=== PATIENT | male | born 1960 | race Caucasian/White ===

== ENCOUNTER 2020-04-29 10:21 | Outpatient (REF) | payer MEDICAID, SELFPAY ==
--- NOTE | 2020-04-29 | MR_ITS ---
EXAMINATION: MR BRAIN WITHOUT CONTRAST CLINICAL INFORMATION: Right facial numbness. Headaches. COMPARISON: None. TECHNIQUE: MRI of the brain was obtained using routine sequences without contrast. FINDINGS: Posterior fossa structures are normal. The craniocervical junction is normal. Empty sella. There is no intracranial mass, mass effect, or shift of midline structures. No abnormal extra axial fluid collection. The lateral and third ventricles are normal and proportionate to the subarachnoid spaces and there is no evidence of hydrocephalus. There is no acute ischemia. No pathological magnetic susceptibility artifact is demonstrated. The intracranial vascular flow voids including the major dural venous sinuses are preserved. Mastoid air cells are clear. Small mucous retention cysts within the bilateral maxillary sinuses. Minimal mucosal thickening within the ethmoid air cells anteriorly. Remainder of the paranasal sinuses are clear. Globes and orbits are symmetric. MR/MR head/brain wo con IMPRESSION: No acute or subacute intracranial pathology. No brain parenchymal signal abnormalities are Incidental note made of an empty sella.
== END 2020-04-29 10:22 | disposition home or self-care (01) ==
LOC: HO.MRI 10:21
PROVIDERS: Visit Provider Nurse Practitioner Primary Care
DX: G44.89 Other headache syndrome (principal); R20.0 Anesthesia of skin; R20.2 Paresthesia of skin
CPT/HCPCS: 70551

== ENCOUNTER 2020-08-25 14:39 | Outpatient (REF) | payer MEDICAID, SELFPAY ==
--- NOTE | ~2020-08-25 | US_ITS ---
EXAMINATION: US SCROTUM CLINICAL INFORMATION: Right testicular pain. COMPARISON: None TECHNIQUE: A sonogram of the scrotum was performed assessing nguyen-scale appearance and color Doppler flow. Spectral Doppler analysis of the arterial and venous flow were performed in the testes bilaterally. FINDINGS: RIGHT: Right testicle measures 4.1 x 2.2 x 3.5 cm, volume 16.2 mL. No focal testicular parenchymal lesions are visualized. Spectral Doppler analysis of the arterial and venous flow is normal in the right testis. Right epididymal head is enlarged. There are several epididymal head cysts, largest measuring 1 x 1.2 x 1.1 cm. There is an appendix epididymis. There is a large right hydrocele. No right varicocele is seen. Right epididymal Doppler flow is normal. LEFT: Left testicle measures 3.7 x 2.8 x 2.6 cm, volume 14.3 mL. There are 3 small calcifications seen in the left testicle. No other focal testicular lesion is seen. Spectral Doppler analysis of the arterial and venous flow is normal in the left testis. Left epididymal head is enlarged. There are multiple left epididymal head cysts, largest measuring 7 x 4 x 5 mm. There is an appendix epididymis. There is a large left hydrocele. There is a left inferior right scrotal calcification suggestive of a scrotal tom, usually related to old infection or trauma. No left varicocele is seen. Left epididymal Doppler flow is normal. US/US scrotum IMPRESSION: Large bilateral hydroceles. Bilateral epididymal head cysts.
== END 2020-08-25 14:40 | disposition home or self-care (01) ==
LOC: HO.US 14:39
PROVIDERS: Visit Provider Nurse Practitioner Primary Care
DX: N50.811 Right testicular pain (principal); N50.89 Other specified disorders of the male genital organs
CPT/HCPCS: 76870

== ENCOUNTER → 2020-10-12 12:54 | Outpatient (BNVA) | payer MEDICAID, SELFPAY | PROVIDERS: PCP Nurse Practitioner Primary Care; Visit Provider Urology | DX: Z13.89 Encounter for screening for other disorder (principal) | CPT/HCPCS: 99202 ==

== ENCOUNTER → 2021-04-12 12:53 | Outpatient (BNVA) | payer MEDICAID, SELFPAY | PROVIDERS: PCP Nurse Practitioner Primary Care; Visit Provider Urology | DX: N50.3 Cyst of epididymis (principal) | CPT/HCPCS: 99212 ==

== ENCOUNTER 2021-05-15 11:58 | Day surgery (SDC) | payer MEDICAID, SELFPAY ==
--- NOTE | 2021-05-12 13:46 | HO.ANESPROP2 ---
Documented by User: Tamika Lindo NP 05/12/21 13:47 HPI - Anesthesia Eval Consult details Narrative: 60yo M for Epididymal Cyst removal of scrotum PMFSH Active Problems Active Problems: All Active Problems (Updated 04/12/21 @ 13:38 by Niranjan Steel MD) BPH (benign prostatic hyperplasia) (Acute) Epididymal cyst (Acute) Past Medical History Medical History (Updated 04/12/21 @ 13:38 by Niranjan Steel MD) BPH (benign prostatic hyperplasia) Diabetes mellitus HTN (hypertension) Testicular pain Family History Family History (Updated 04/12/21 @ 13:09 by Jocelyn Hanson CMA) Sister HTN (hypertension) Social History Social History (Updated 04/12/21 @ 13:09 by Jocelyn Hanson CMA) Alcohol intake: never Patient Tobacco Use Status: Never used Tobacco Second Hand Smoke Exposure: No Use of substances other than those prescribed or required for medical reasons: No Are you DNR?: No Advance Directives: No Advance Directives Information Provided: Yes Advance Directives on File: No Meds Allergies Allergy/AdvReac Type Severity Reaction Status Date / Time No Known Allergies Allergy Verified 04/12/21 13:07 Home Medications Medication Instructions Recorded Confirmed Last Taken Type atorvastatin 10 mg tablet 10 mg PO DAILY 04/12/21 Unknown History clotrimazole 1 % topical cream appl TOPICAL 04/12/21 Unknown History lancets 33 gauge (TRUEplus Lancets) #100 ea 04/12/21 Unknown History metformin 500 mg tablet 500 mg PO BID 04/12/21 Unknown History polyethylene glycol 3350 17 gram 17 g PO DAILY PRN 04/12/21 Unknown History oral powder packet terbinafine HCl 250 mg tablet 250 mg PO DAILY 04/12/21 Unknown History Exam Exam Date and Time: May 12, 2021 1346 Assessment and Plan Assessment Anesthesia Assessment: Chart Reviewed Documented by User: Nury Dennis MD 05/15/21 13:17 PMFSH Past Medical History Medical History (Updated 04/12/21 @ 13:38 by Niranjan Steel MD) BPH (benign prostatic hyperplasia) Diabetes mellitus HTN (hypertension) Testicular pain Family History Family History (Updated 04/12/21 @ 13:09 by Jocelyn Hanson CMA) Sister HTN (hypertension) Family history of problems with anesthesia: No Surgical History History of Problems with Anesthesia: No Social History Social History (Updated 04/12/21 @ 13:09 by Jocelyn Hanson CMA) Alcohol intake: never Patient Tobacco Use Status: Never used Tobacco Second Hand Smoke Exposure: No Use of substances other than those prescribed or required for medical reasons: No Are you DNR?: No Advance Directives: No Advance Directives Information Provided: Yes Advance Directives on File: No Meds Allergies Allergy/AdvReac Type Severity Reaction Status Date / Time No Known Allergies Allergy Verified 04/12/21 13:07 Home Medications Medication Instructions Recorded Confirmed Last Taken Type atorvastatin 10 mg tablet 10 mg PO DAILY 04/12/21 Unknown History clotrimazole 1 % topical cream appl TOPICAL 04/12/21 Unknown History lancets 33 gauge (TRUEplus Lancets) #100 ea 04/12/21 Unknown History metformin 500 mg tablet 500 mg PO BID 04/12/21 Unknown History polyethylene glycol 3350 17 gram 17 g PO DAILY PRN 04/12/21 Unknown History oral powder packet terbinafine HCl 250 mg tablet 250 mg PO DAILY 04/12/21 Unknown History Exam Airway Mallampati Class: II TM Dist: >3cm Neck ROM: Full Heart: rrr Lungs: cta Assessment and Plan Assessment Anesthesia Assessment: Anesthesia Plan Discussed and Chart Reviewed Final Anesthetic Review Family History of Problems with Anesthesia: No History of Problems with Anesthesia: No NPO: Yes ASA Class: II Final Preanesthetic Review: No Changes in Pt Med Stat, Meds/Allgs Chart Reviewed and Consent Obtained/Reviewed Patient Risk: Intermediate Procedure Risk: Intermediate Anesthetic Plan Anesthetic Plan: GA Disposition: Standard PACU
[2021-05-15 12:31] VITALS: BMI 28.1
[2021-05-15 12:47] LABS: Glucose, Whole Blood 153 mg/dL (60-115)
[2021-05-15 12:48] VITALS: BP 142/87; PULSE 78; RESP 16; TEMP 36.6; O2SAT 98
[2021-05-15] MEDS: Lactated Ringers 1,000 ML 100 ML IVCONT (12:49)
--- NOTE | 2021-05-15 14:25 | MHC.SHP ---
Pre-Procedural Eval Section A Date of Service: 05/15/21 The patient is an INPATIENT: No Changes since office visit: No Cold of Flu in the past 2 weeks, No New Medical Problems, No Changes in Medication and No Patient answered all questions The History & Physical has been completed within 30 days and I have reviewed it.: Yes Section B Chief Complaint: cyst Allergies: Allergies Allergy/AdvReac Type Severity Reaction Status Date / Time No Known Allergies Allergy Verified 04/12/21 13:07 Plan Diagnosis/Plan: Unchanged (Removal bilateral epididymal cyst) I have reviewed the history and physical and performed a pertinent physical examination on my patient. No changes have occurred unless specified.
--- NOTE | 2021-05-15 15:45 | W.PM.OPN ---
Operative Note Operative Note Date of Service: 05/15/21 Narrative: PreOperative Diagnosis: Bilateral epididymal cysts Post Operative Diagnosis: Bilateral hydrocele, sebaceous cyst on scrotum Procedure: Bilateral Hydrocelectomy. Right epididymal cyst removal, left scrotal sebaceous cyst removal Surgeon: Dr Niranjan Steel Anesthesia: General Indications for procedure: Persistent swelling of scrotum. Ultrasound showing bilateral epididymal cyst. Left scrotal sebaceous cyst. hydrocele with persistent discomfort Procedure: After informed consent was verified the patient was brought to the operating room and placed in a supine position. Anesthesia was administered per protocol. Patient was appropriately shaved and genitals were prepped and draped in sterile fashion. Safety pause time-out was performed. Antibiotics being given. Local anesthetic was infiltrated under the skin in a vertical fashion on the scrotum at the midline Skin incision was made using a blade through the subdermal layer. The tunica around the testicle was elevated and dissected free from surrounding tissue on the left side 1st. The testicle was delivered out of the scrotum and opened. Fluid was removed. The testicle sac was inverted and a bottle neck procedure was performed using a running 3-0 Vicryl suture. Skin edges of the tunica were cauterized carefully in order to try to minimize postprocedure hematoma. Testis appendix sees were removed. There was no epididymal cyst on the left side. Small accessory appendices were removed from the head of epididymis. Were after excess skin had been trimmed in edges fully controlled the scrotum was placed back into a dependent portion of the scrotum. Overlying layer was closed with a running 3-0 Vicryl suture. The right scrotal area was then opened through the tissue and the right testicle delivered. Again a hydrocele was found with interval accessory appendage sees. There was also a cyst within the head of the epididymis that was removed. The epididymal head cyst area was closed with 3-0 Vicryl. The edges of the hydrocele were attached in run. 3-0 Vicryl used for closure of the overlying tissue. A final layer of tissue was overlaid both incisions using a running 3-0 Vicryl. Skin was closed with interrupted 3-0 chromic sutures. A sebaceous cyst measuring 15 mm on the left dependent scrotum was opened and sebaceous cyst removed with underlying cyst structure removed. This was closed with an interrupted chromic. Patient tolerated procedure well was extubated in operating room transferred in stable condition to the recovery area Pathology: Hydrocele sac Drains: None
[2021-05-15 15:53] VITALS: BP 134/91; PULSE 74; RESP 16; TEMP 36.6; O2SAT 97
[2021-05-15 15:58] VITALS: BP 140/86; PULSE 70; RESP 16; O2SAT 98
[2021-05-15 16:03] VITALS: BP 113/74; PULSE 77; RESP 16; O2SAT 98
[2021-05-15 16:08] VITALS: BP 107/69; PULSE 81; RESP 16; O2SAT 96
[2021-05-15 16:23] VITALS: BP 100/63; PULSE 68; RESP 16; TEMP 36.3; O2SAT 98
== END 2021-05-15 16:50 | disposition home or self-care (01) ==
PROVIDERS: PCP Nurse Practitioner Primary Care; Visit Provider Urology
PROC: (CPT 54830; principal; 2021-05-15 13:30)
DX: N43.3 Hydrocele, unspecified (principal); N50.3 Cyst of epididymis; L72.3 Sebaceous cyst; N40.0 Benign prostatic hyperplasia without lower urinary tract symptoms; N50.819 Testicular pain, unspecified; I10 Essential (primary) hypertension; E11.9 Type 2 diabetes mellitus without complications; Z79.84 Long term (current) use of oral hypoglycemic drugs; Z79.899 Other long term (current) drug therapy
CPT/HCPCS: 54830; 11420; 55041; 82947; 88302; 88304; J1956; J2405; J3010

== ENCOUNTER 2022-10-31 12:32 | Day surgery (SDC) | payer MEDICAID, SELFPAY ==
[2022-10-31 13:03] VITALS: BMI 28.2
[2022-10-31 13:08] VITALS: BP 139/78; PULSE 61; RESP 18; TEMP 36.4; O2SAT 97
--- NOTE | 2022-10-31 13:18 | HO.ANESPROP2 ---
HPI - Anesthesia Eval Consult details Narrative: for [facility] Active Problems Active Problems: All Active Problems (Updated 04/12/21 @ 13:38 by Niranjan Steel MD) Epididymal cyst (Acute) BPH (benign prostatic hyperplasia) (Acute) Past Medical History Medical History BPH (benign prostatic hyperplasia) Diabetes mellitus HTN (hypertension) Testicular pain Family History Family History Sister HTN (hypertension) Family history of problems with anesthesia: No Surgical History Surgical History Status post repair of hydrocele History of Problems with Anesthesia: Unobtainable Social History Social History Alcohol intake: never Patient Tobacco Use Status: Never used Tobacco Second Hand Smoke Exposure: No Use of substances other than those prescribed or required for medical reasons: No Are you DNR?: No Advance Directives: No Advance Directives Information Provided: Yes Meds Allergies Allergy/AdvReac Type Severity Reaction Status Date / Time No Known Allergies Allergy Verified 04/12/21 13:07 Active Medications: Current Medications Lactated Ringer's (Lr) 1,000 mls @ 100 mls/hr IVCONT .Q10H LAYNE Home Medications Medication Instructions Recorded Confirmed Last Taken Type atorvastatin 10 mg tablet 10 mg PO DAILY 04/12/21 10/31/22 Unknown History clotrimazole 1 % topical cream 1 appl topical DAILY PRN Rash 04/12/21 Unknown History lancets 33 gauge (TRUEplus Lancets) #100 ea 04/12/21 Unknown History metformin 500 mg tablet 500 mg PO BID 04/12/21 10/31/22 Unknown History Exam Exam Date and Time: October 31, 2022 1318 Height,Weight and Vital Signs: Height 5 ft 7 in Weight 81.647 kg Last Vital Signs Temp 97.6 F 10/31/22 13:08 Pulse 61 10/31/22 13:08 Resp 18 10/31/22 13:08 BP 139/78 10/31/22 13:08 Pulse Ox 97 10/31/22 13:08 O2 Del Method Room Air 10/31/22 13:08 Airway Mallampati Class: II TM Dist: >3cm Neck ROM: Full Heart: rrr Lungs: cta Assessment and Plan Assessment Anesthesia Assessment: Anesthesia Plan Discussed and Chart Reviewed Final Anesthetic Review Family History of Problems with Anesthesia: No History of Problems with Anesthesia: Unobtainable NPO: Yes ASA Class: II Final Preanesthetic Review: No Changes in Pt Med Stat, Meds/Allgs Chart Reviewed, Consent Obtained/Reviewed and Anes Risks/Benef Reviewed Patient Risk: Low Procedure Risk: Low Anesthetic Plan Anesthetic Plan: MAC: Disposition: Standard PACU
[2022-10-31 13:20] LABS: Glucose, Whole Blood 104 mg/dL (60-115)
[2022-10-31] MEDS: Lactated Ringers 1,000 ML 100 ML IVCONT (13:20)
--- NOTE | 2022-10-31 13:50 | MHC.SHP ---
Pre-Procedural Eval Section A Date of Service: 10/31/22 The patient is an INPATIENT: No Changes since office visit: No Cold of Flu in the past 2 weeks, No New Medical Problems, No Changes in Medication and No Patient answered all questions The History & Physical has been completed within 30 days and I have reviewed it.: Yes Section B Chief Complaint: Encounter for screening for malignant neoplasm of Allergies: Allergies Allergy/AdvReac Type Severity Reaction Status Date / Time No Known Allergies Allergy Verified 04/12/21 13:07 Plan I have reviewed the history and physical and performed a pertinent physical examination on my patient. No changes have occurred unless specified. Time Spent With Patient Time: Total time managing care of this patient today ____ minutes.
--- NOTE | 2022-10-31 14:24 | P.BOP_ITS ---
Brief Operative Note Date of Service: 10/31/22 Pre-op diagnosis: screening Post-op diagnosis: same Surgeon: Alexis Ortiz Anesthesia: MAC Was an Aligner Barrel And Receiver used for this Procedure?: No Estimated blood loss (mL): 0 Pathology: other Condition: stable Disposition: PACU
[2022-10-31 14:25] VITALS: BP 98/62; PULSE 60; RESP 14; TEMP 36.6; O2SAT 97
[2022-10-31 14:30] VITALS: BP 101/59; PULSE 58; RESP 16; TEMP 36.6; O2SAT 97
[2022-10-31 14:35] VITALS: BP 102/63; PULSE 56; RESP 16; O2SAT 99
[2022-10-31 14:40] VITALS: BP 111/69; PULSE 56; RESP 16; TEMP 36.3; O2SAT 100
--- NOTE | 2022-10-31 22:13 | OP_ITS ---
DATE OF SERVICE: 10/31/2022 SURGEON: Alexis Ortiz MD INDICATIONS: Colon cancer screening and abdominal cramping. PREOPERATIVE DIAGNOSIS: POSTOPERATIVE DIAGNOSIS: PROCEDURE PERFORMED: Colonoscopy to the cecum with biopsy. ESTIMATED BLOOD LOSS: COMPLICATIONS: ANESTHESIA: Monitored anesthesia care. ASSISTANTS: SPECIMENS: DESCRIPTION OF PROCEDURE: A history and physical was performed. The risks and benefits of the procedure were explained to the patient. Informed consent was obtained. The patient was placed in the left lateral decubitus position. A digital rectal exam was performed and was found to be normal. The Olympus pediatric video colonoscope was introduced into the rectum and advanced to the cecum. The cecum was identified by transillumination, palpation, and identification of ileocecal valve. Abdominal wall pressure was used to assist in advancement of the scope due to looping in the sigmoid. FINDINGS: There was some mild right-sided diverticulosis. The quality of the prep was good. No polyps were identified. There was no evidence of colitis. Biopsies were obtained from the sigmoid colon because of the patient's prior history of abdominal cramping. Retroflexed examination showed moderate-sized internal hemorrhoids. IMPRESSION: Normal colonoscopy. RECOMMENDATION: 1. Follow up the biopsy results. 2. Repeat colonoscopy is recommended in 10 years for average risk individuals. MD ANABELL Isaac/EDGAR / [id number]
== END 2022-10-31 15:04 | disposition home or self-care (01) ==
PROVIDERS: PCP Nurse Practitioner Primary Care; Visit Provider Internal Medicine Gastroenterology
PROC: 0DJD8ZZ Inspection of Lower Intestinal Tract, Via Natural or Artificial Opening Endoscopic (ICD-10-PCS; CPT 45378; principal; 2022-10-31 13:50)
DX: Z12.11 Encounter for screening for malignant neoplasm of colon (principal); K57.30 Diverticulosis of large intestine without perforation or abscess without bleeding; K64.8 Other hemorrhoids; R10.9 Unspecified abdominal pain; I10 Essential (primary) hypertension; E78.5 Hyperlipidemia, unspecified; E11.9 Type 2 diabetes mellitus without complications; Z79.84 Long term (current) use of oral hypoglycemic drugs; Z79.82 Long term (current) use of aspirin; Z79.899 Other long term (current) drug therapy
CPT/HCPCS: 45380; 82947; 88305

== ENCOUNTER 2023-09-02 10:13 | Outpatient (REF) | payer MEDICARE, SELFPAY ==
--- NOTE | ~2023-09-02 | XR_ITS ---
EXAM: X-RAYS BILATERAL HANDS CLINICAL INFORMATION: Chronic bilateral ankle pain. COMPARISON: None. TECHNIQUE: 4 views of each ankle. FINDINGS: Left ankle: Small plantar calcaneal spur. Prominent calcification/ossification with fragmentation focused in the region of insertion of Achilles tendon into posterior aspect of calcaneus. Tiny calcification/ossifications overlying the left medial malleolus possibly related to a chronic/degenerative process versus prior trauma. Right ankle: Small plantar calcaneal spur. Mild hypertrophic change on limited imaging of the tarsometatarsal joints/midfoot. Prominent calcification/ossification with fragmentation in the region of insertion of Achilles tendon into calcaneus. Corticated ossicle inferior to the medial malleolus, right, of indeterminate age, possibly related to a chronic/degenerative process versus prior trauma. XR/XR ankle RT min 3V IMPRESSION: 1. Bilateral prominent calcification/ossification with fragmentation in the region of insertion of Achilles tendon into calcaneus. 2. Corticated ossicle inferior to the medial malleolus, right, of indeterminate age, possibly related to a chronic/degenerative process versus prior trauma. 3. Correlation with clinical exam recommended to determine significance.
--- NOTE | ~2023-09-02 | XR_ITS ---
EXAM: X-RAYS BILATERAL HANDS CLINICAL INFORMATION: Chronic bilateral ankle pain. COMPARISON: None. TECHNIQUE: 4 views of each ankle. FINDINGS: Left ankle: Small plantar calcaneal spur. Prominent calcification/ossification with fragmentation focused in the region of insertion of Achilles tendon into posterior aspect of calcaneus. Tiny calcification/ossifications overlying the left medial malleolus possibly related to a chronic/degenerative process versus prior trauma. Right ankle: Small plantar calcaneal spur. Mild hypertrophic change on limited imaging of the tarsometatarsal joints/midfoot. Prominent calcification/ossification with fragmentation in the region of insertion of Achilles tendon into calcaneus. Corticated ossicle inferior to the medial malleolus, right, of indeterminate age, possibly related to a chronic/degenerative process versus prior trauma. XR/XR ankle LT min 3V IMPRESSION: 1. Bilateral prominent calcification/ossification with fragmentation in the region of insertion of Achilles tendon into calcaneus. 2. Corticated ossicle inferior to the medial malleolus, right, of indeterminate age, possibly related to a chronic/degenerative process versus prior trauma. 3. Correlation with clinical exam recommended to determine significance.
[2023-09-02 12:16] LABS: Anion Gap 20 (12-20); Blood Urea Nitrogen 11 mg/dL (9-16); Calcium 9.5 mg/dL (8.4-10.2); Carbon Dioxide 21 mmol/L (22-29); Chloride 100 mmol/L (96-108); Cholesterol 276 mg/dL (<200); Estimated Glomerular Filt Rate > 60; HDL Cholesterol 29 mg/dL (>40); Potassium 3.9 mmol/L (3.3-5.1); Sodium 137 mmol/L (135-145); Triglycerides 1060 mg/dL (<150)
[2023-09-02 12:21] LABS: Glucose Random 363 mg/dL (60-115)
== END 2023-09-02 10:14 | disposition home or self-care (01) ==
LOC: HO.CHCLDS 10:13
PROVIDERS: Visit Provider Nurse Practitioner Primary Care
DX: E11.59 Type 2 diabetes mellitus with other circulatory complications (principal); I15.2 Hypertension secondary to endocrine disorders; E11.69 Type 2 diabetes mellitus with other specified complication; E78.5 Hyperlipidemia, unspecified; M25.571 Pain in right ankle and joints of right foot; M25.572 Pain in left ankle and joints of left foot
CPT/HCPCS: 36415; 73610; 80048; 80061

== ENCOUNTER 2024-02-10 08:31 | Outpatient (REF) | payer MEDICARE, SELFPAY ==
--- NOTE | ~2024-02-10 | XR_ITS ---
EXAMINATION: XR HAND, RIGHT CLINICAL INFORMATION: Pain in right hand COMPARISON: None available. TECHNIQUE: PA, lateral, and oblique views of the right hand. FINDINGS: The bones and soft tissues are normal. No fracture. Alignment is anatomic. Joint spaces are maintained. No erosions or soft tissue calcifications. XR/XR hand RT min 3V IMPRESSION: Normal right hand. Electronically signed by: Daniel Hernandez MD 02/15/2024 08:55 AM EDT
== END 2024-02-10 08:32 | disposition home or self-care (01) ==
LOC: HO.HOSX 08:31
DX: M65.341 Trigger finger, right ring finger (principal)
CPT/HCPCS: 20550; 73130; 99202; J1100; J2003

== ENCOUNTER 2024-02-10 13:09 | Outpatient (AMB) | payer MEDICARE, SELFPAY ==
--- NOTE | 2024-02-10 14:26 | MHC.OFFVIS ---
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 Patient reports that his right ring finger started to lock for about 6 months. He states that his finger locks more at night, it causes him uncomfortable tightness and burning sensation in the base of the ring finger. Patient has tried and failed ibuprofen. 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 The patient states that over this time, this condition has become quite painful. Patient states that when he brings his finger down into a flexed position, it frequently catches and he needs to either force the finger up or manually release the finger with the other hand. Patient states he would like to try any treatment options available to him at this time. No other acute complaints or concerns at this time. 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 Neuro: Normal sensation of the tips of all digits of the right hand at this time Vascular: Cap refill brisk Pain: Patient reports tenderness to palpation of the A1 sunita of the right ring finger No tenderness to palpation elsewhere on the right hand ROM: There is visible and palpable locking and catching of the right ring finger in a flexed position Patient is able to flex and extend all other digits of the right hand fully and without difficulty Skin: No lacerations or abrasions. General: No ecchymosis, erythema, or evidence of infection. Psych: Appears grossly normal Affect normal Attitude cooperative Assessment & Plan Assessment & Plan (1) Trigger finger, right ring finger: Code(s): M65.341 - Trigger finger, right ring finger Category: Medical Plan 1. Trigger finger, right ring finger Ongoing for approximately 6 months Patient is educated about this condition and the treatment options available. The patient would like to proceed with a steroid injection. The risks and benefits of a steroid injection including but not limited to risk of damage to blood vessels, nerves, tendons, infection, skin bleaching, failure to improve symptoms, increased pain, and possible need for further injections or other intervention were discussed with the patient and the patient wishes to proceed with the steroid injection. Once consent was obtained, I sterilely prepped the area over the A1 sunita of the flexor tendon sheath of the right ring finger. I then injected the flexor tendon sheath with a combination of 1 mL of dexamethasone (4mg/ml), and 1% lidocaine. The patient tolerated the procedure well with no complications. If the patient continues to have locking and catching 4-6 weeks following this injection, they may call to schedule appointment to discuss alternative treatment options Follow-up prn Orders: Orders XR hand RT min 3V 02/10/24 M79.641 - Pain in right hand Coding Level of Care Code New Pt Level 3 (85441) Diagnoses Trigger finger, right ring finger M65.341
[2024-02-10 14:32] VITALS: BMI 27.4
== END 2024-02-10 15:06 | disposition home or self-care (01) ==
PROVIDERS: PCP Nurse Practitioner Primary Care
DX: M65.341 Trigger finger, right ring finger (principal)
CPT/HCPCS: 20550; 99203

== ENCOUNTER 2024-03-31 11:49 | Outpatient (REF) | payer MEDICARE, SELFPAY ==
[2024-03-31 13:31] LABS: Cholesterol 217 mg/dL (<200); HDL Cholesterol 39 mg/dL (>40); LDL Cholesterol Calculated 111 mg/dL (<100); Triglycerides 335 mg/dL (<150)
[2024-03-31 13:34] LABS: Estimated Average Glucose 174 mg/dL; Hemoglobin A1C 218.3162 umol/L; Hemoglobin A1c % 7.7 % (<6.0); Total Hemoglobin (HGBA1C) 3626.3449 umol/L
[2024-03-31 14:02] LABS: Creatinine Urine 213.34 mg/dL
== END 2024-03-31 11:50 | disposition home or self-care (01) ==
LOC: HO.HHCL 11:49
PROVIDERS: Visit Provider Nurse Practitioner Primary Care
DX: E11.69 Type 2 diabetes mellitus with other specified complication (principal); E78.5 Hyperlipidemia, unspecified
CPT/HCPCS: 36415; 80061; 82043; 82570; 83036

== ENCOUNTER 2024-09-21 13:24 | Outpatient (REF) | payer MEDICARE, SELFPAY ==
--- NOTE | ~2024-09-21 | US_ITS ---
CLINICAL HISTORY: R scrotal swelling, h o epididymal cysts US Scrotum with Doppler Comparison: None Findings: Right testicle measures 4.3 x 1.6 x 2.9 cm in size. Right testicle is of normal echotexture without mass lesion. Right epididymis is unremarkable. Left testicle measures 4.4 x 1.7 x 3.3 cm in size. Left testicle is of normal echotexture without mass lesion. Cyst within the left epididymis measures 9 x 6 mm in size. No scrotal wall thickening. Bilateral varicoceles. Duplex evaluation of the testicles was performed. This included real-time grayscale, color spectral Doppler analysis, and color Doppler flow imaging. Appropriate blood flow to both testicles. IMPRESSION: 1. No testicular mass. 2. Left epididymal cyst. 3. Bilateral varicoceles. This document has been electronically signed by: Avelino Cerda MD on 09/22/2024 08:34:46
--- OUTSIDE RECORDS SUMMARY | 2024-09-21 14:30 | XMS_ITS | Encounter Summary ---
Author Organization [employer] [facility] Address [address] [place] [address] [address] [place] [address] Care Team Providers Care Dough Molder Name Role Phone Mary Velasco Primary Care Provider [phone] Ata Gutierrez Unavailable Unavail able Jesi Wallace Unavailable Unavailable Encounter Details Date Type Department Care Team (Latest Contact Info) Description 09/20/2020 Abstract [facility] CONVERSIONS Dental, Provider, DDS Social History Tobacco Use Types Packs/Day Years Used Date Smoking Tobacco: Never Assessed Sex and Gender Information Value Date Recorded Sex Assigned at Male 02/19/2022 10:36 AM EDT Legal Sex Male 10:36 AM EDT Gender Identity Male 02/19/2022 10:36 AM EDT Sexual Orientation Straight 02/19/2022 10 :36 AM EDT documented as of this encounter Plan of Treatment Upcoming Encounters Date Type Department Care Team (Late st Contact Info) Description 09/25/2024 11:15 AM EDT Office Visit [facility] MEDICINE [address] [place] [address] Mary Velasco ANP [address] [place] [address] documented as of this encounter Visit Diagnoses Not on filedocumented in this encounter Care Teams Dough Molder Relationship Specialty Start Date End Date Mary Velasco ANP [address] [place] [address] PCP - General Family Medicine 07/10/19 Ata Gutierrez Community Health Worker 04/01/23 Jesi Wallace Health Navigator 11/21/23 documented as of this encounter
== END 2024-09-21 13:25 | disposition home or self-care (01) ==
LOC: HO.US 13:24
PROVIDERS: PCP Nurse Practitioner Primary Care; Visit Provider Nurse Practitioner Primary Care
DX: N50.3 Cyst of epididymis (principal)
CPT/HCPCS: 76870

== ENCOUNTER → 2024-09-21 13:26 | Outpatient (BNV) | payer MEDICARE, SELFPAY | PROVIDERS: PCP Nurse Practitioner Primary Care; Visit Provider Radiology Diagnostic Radiology | DX: N49.2 Inflammatory disorders of scrotum (principal) | CPT/HCPCS: 76870; 93976 ==

== ENCOUNTER 2024-10-26 09:46 | Outpatient (REF) | payer MEDICARE, SELFPAY ==
--- OUTSIDE RECORDS SUMMARY | 2024-10-26 10:20 | XMS_ITS | Encounter Summary ---
Author Organization [facility] Address [address] [place] [address] 7 [place] [address] Care Team Providers Care Parts Room Clerk Name Role Phone Mary Velasco Primary Care Provider [phone] Ata Gutierrez Unavailable Unavail able Jesi Wallace Unavailable Unavailable Karli Montejo PharmD Unavailable [phone] Encounter Details Date Type Department Care Team (Latest Contact Info) Description 09/20/2020 Abstract [facility] Dental, Provider, DDS Social History Tobacco [...] Care Team (Late st Contact Info) Description 11/16/2024 11:30 AM EDT Medication Management [facility] [address] [place] [address] Karli Montejo, PharmD [address] [place] [address] documented as of this encounter Visit Diagnoses Not on filedocumented in this encounter Care Teams Parts Room Clerk Relationship Specialty Start Date End Date Mary Velasco ANP [address] [place] [address] PCP - General Family Medicine 07/10/19 Ata Gutierrez Community Health Worker 04/01/23 Jesi Wallace Health Navigator 11/21/23 Karli Montejo, AyleenD [address] [place] [id number] Pharmacist Internal Medicine 10/12/24 documented as of this encounter
--- OUTSIDE RECORDS SUMMARY | 2024-10-26 10:20 | XMS_ITS | Patient Health Record ---
Author Organization [facility] Address [address] [place] [id number] Care Team Providers Care Bilingual Inside Sales Representative Name Role Phone DONNELL OKEEFE N.P. Primary Care Provider Alexis Bird Jr Allergies No Known Allergies Reason For Referral No Information Medications Medication SIG (Take, Route, Frequency, Duration) Notes Start Date End Date Status Atorvastatin Calcium 10 MG 1 tablet Oral ly Once a day Active metFORMIN HCl 500 MG 5 mL with a meal Or ally 1 po bid Active Lexapro 10 MG 1 tablet Orally Once a day Active Aspirin 81 81 MG 1 tablet Orally Once a day Active MiraLax (colon prep) 17 GM/SCOOP mixed with Gatorade or Crystal Light Orally begin at 5:00 p.m. the day before the procedure for 1 day 10/01/2022 Active Immunizations Vaccine Route Administration Date Status Comme nts Influenza Unknown 01/26/2022 Administered given by [facility] in fall Social History Tobacco Use: Social History Observation Description Date Details (start date - stop date) Never Smoker NA - NA Tobacco Use/Smoking Question Answer Notes Patient is a nonsmoker Alcohol Screen Question Answer Notes Did you have a drink containing alcohol in the p ast year? No Points 0 Interpretation Negative Problems Problem Type SNOMED Code ICD Code Onset Dates Problem Status W/U Status Risk Notes Problem 233739114 Colon cancer screening (Z12.11) Active confirmed Problem 650931710 Abdominal cramping (R10.9) Active confirmed Plan Of Treatment Future Test Test Name Order Date COLONOSCOPY 10/01/2022 Insurance Providers Payer Name Payer Address Payer Phone Subscriber Number Group Number Insured Name Patient Relationship to Insured Coverage Start Date Coverage End Date MEDICAID [facility] [address] [place] [address] [id number] ESTUARDO MILLER Self - patient is the insured Medical (General) History Medical History History ICD Code Diabetes mellitus type 2 Hypertension Hyperlipidemia Surgical History Surgery Date(Month/Year) Hydrocele and testicular cyst repair 202 1
[2024-10-26 12:54] LABS: Vitamin B12 337 pg/mL (200-900)
[2024-10-26 12:58] LABS: Hemoglobin A1C 307.1580 umol/L; Total Hemoglobin (HGBA1C) 3887.6518 umol/L
[2024-10-26 13:48] LABS: Alanine Aminotransferase 41 U/L (0-40); Albumin Level 4.6 g/dL (3.5-5.0); Alkaline Phosphatase 107 U/L (39-117); Anion Gap 12 (12-20); Aspartate Amino Transferase 40 U/L (5-37); Blood Urea Nitrogen 12 mg/dL (9-16); Calcium 9.0 mg/dL (8.4-10.2); Carbon Dioxide 25 mmol/L (22-29); Chloride 107 mmol/L (96-108); Cholesterol 190 mg/dL (<200); Estimated Glomerular Filt Rate > 60; HDL Cholesterol 38 mg/dL (>40); Potassium 4.1 mmol/L (3.3-5.1); Sodium 140 mmol/L (135-145); Total Protein 7.3 g/dL (6.5-8.0); Triglycerides 162 mg/dL (<150)
== END 2024-10-26 09:47 | disposition home or self-care (01) ==
LOC: HO.HHCL 09:46
PROVIDERS: PCP Nurse Practitioner Primary Care; Visit Provider Nurse Practitioner Primary Care
DX: E11.69 Type 2 diabetes mellitus with other specified complication (principal); E78.5 Hyperlipidemia, unspecified
CPT/HCPCS: 36415; 80048; 80061; 80076; 82607; 83036

== ENCOUNTER 2024-12-14 14:43 | Outpatient (AMB) | payer MEDICARE, SELFPAY ==
--- NOTE | 2024-12-14 14:49 | A.OFFVIS_ITS ---
Intake Visit Reasons: bilateral verioceles Intake Note: Patient is present for BILATERAL VERIOCELES Urology Medication:NONE Antibiotic Allergy:NONE Blood Thinner:NONE TODAY'S PVR:15ML'S Artisan Plasterer Required: No Allergies No Known Allergies Allergy (Verified 12/14/24 15:31) Medication List - Last Reconciled 12/14/24 by BRET Pérez atorvastatin 10 mg PO DAILY clotrimazole 1% 1 appl topical DAILY PRN lancets (TRUEplus Lancets) As directed metformin 500 mg PO BID naproxen 500 mg PO BID PRN 7 days HPI Comments Details: Festus is a pleasant 64-year-old male patient of Dr. Velasco. He has a past medical history of BPH, diabetes, hypertension, and testicular pain. He presents to the office today as a new patient for right-sided testicular discomfort he has been experiencing. In discussion with the patient today he reports having followed up with his PCP at which time a scrotal ultrasound was ordered and recommendations were made for urology referral for further assessment evaluation. These results were reviewed and communicated with the patient today. Scrotal ultrasound 10/14 noted no testicular masses. Left epididymal head cysts. Bilateral varicoceles. In discussion with the patient today he reports previously following up with Dr. Steel and having had scrotal surgical intervention in the past. In review of patient's chart it appears 05/13 patient underwent bilateral hydrocelectomy with right epididymal head cyst removal and left scrotal sebaceous cyst removal. Patient reports status post surgical procedure he had been doing well up until approximately 4 months ago when he started experiencing right-sided testicular pain. On exam today the penis is uncircumcised bilateral varicoceles are noted. There is pain to right epididymis otherwise no masses, lesions, and or drainage noted throughout the area. Small left epididymal head cyst was palpated however no pain upon palpation. We did discussed further interventions and risks and benefits of these interventions. He otherwise denies any bothersome urinary issues. He denies urinary urgency, urinary frequency, incontinence, nocturia, hematuria, dysuria, foul smelling urine, changes to urinary stream, flank pain, fever, and or chills.He is happy with his current voiding parameters. PSA 07/09 0.2. He reports having annual PSAs with PCP he otherwise offers no other issues or concerns at this time. 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 Review of Systems Const All systems reviewed & are unremarkable except as noted in HPI and below Physical Exam Const General: cooperative, healthy appearing, comfortable, no acute distress, well developed, alert and awake Orientation/consciousness: patient oriented x3 Limitations: no limitations HEENT Head: Yes normal to inspection, Yes normocephalic and Yes atraumatic Ears: hearing grossly normal bilaterally Eyes General: appearance normal, both eyes and all related structures Neck Neck: Yes normal visual inspection and Yes trachea midline Chest Chest palpation & inspection: normal inspection of the chest Resp Effort & Inspection: normal respiratory effort and able to speak in complete sentences Cardio Rate: regular rate GI Inspection: Yes normal to inspection General: Yes no CVA tenderness Back/Spine/Pelvis Back: no CVA tenderness Skin General skin exam: no rashes or lesions noted Neuro General: patient oriented x3 Extrem General: Yes normal to inspection Psych Appearance: grossly normal and well kempt Mental Status: mental status grossly normal Speech and movement: Normal speech and movement present and Clear speech present Affect: normal affect Attitude: cooperative Thought process: Normal thought process present Thought content: Normal thought content present Insight: Fair insight present (Psych) Judgement: Fair judgement present (Psych) Office Procedures Post Void Residual Post Residual Void Post Void Residual (PVR): 15 54550-Vmda Void Residual by ultrasound Results AMB Urinalysis, Automated UA Leukoctes 0 Mi/uL Last Edit by CARLOS ALBERTO Villalobos on 12/14/24 15:09 UA Nitrite Negative Last Edit by CARLOS ALBERTO Villalobos on 12/14/24 15:09 UA Urobilinogen 0.2 mg/dL Last Edit by CARLOS ALBERTO Villalobos on 12/14/24 15:0 9 UA Protein 0 mg/dL Last Edit by CARLOS ALBERTO Villalobos on 12/14/24 15:09 UA pH 6.0 Last Edit by CARLOS ALBERTO Villalobos on 12/14/24 15:09 UA Blood 0 Stephen/uL Last Edit by CARLOS ALBERTO Villalobos on 12/14/24 15:09 UA Specific Hooper 1.015 Last Edit by CARLOS ALBERTO Villalobos on 12/14/24 15: 09 UA Ketone Negative Last Edit by CARLOS ALBERTO Villalobos on 12/14/24 15:09 UA Bilirubin 0 mg/dL Last Edit by CARLOS ALBERTO Villalobos on 12/14/24 15:09 UA Glucose 500 mg/dL Last Edit by CARLOS ALBERTO Villalobos on 12/14/24 15:09 Results Reviewed Results Reviewed: Laboratory Last Values Urine pH (Auto) 6.0 12/14/24 15:08 Specific Hooper (Auto) 1.015 12/14/24 15:08 Urine Protein (Auto) 0 mg/dL 12/14/24 15:08 Glucose (UA)(Auto) 500 mg/dL 12/14/24 15:08 Urine Ketones (Auto) Negative 12/14/24 15:08 Urine Blood (Auto) 0 Stephen/uL 12/14/24 15:08 Urine Nitrite (Auto) Negative 12/14/24 15:08 Urine Bilirubin (Auto) 0 mg/dL 12/14/24 15:08 Urine Urobilinogen (Auto) 0.2 mg/dL 12/14/24 15:08 Leukocyte Esterase (Auto) 0 Mi/uL 12/14/24 15:08 Date of Service: 09/21/24 Procedure(s): US scrotum Comparison: None Findings: Right testicle measures 4.3 x 1.6 x 2.9 cm in size. Right testicle is of normal echotexture without mass lesion. Right epididymis is unremarkable. Left testicle measures 4.4 x 1.7 x 3.3 cm in size. Left testicle is of normal echotexture without mass lesion. Cyst within the left epididymis measures 9 x 6 mm in size. No scrotal wall thickening. Bilateral varicoceles. Duplex evaluation of the testicles was performed. This included real-time grayscale, color spectral Doppler analysis, and color Doppler flow imaging. Appropriate blood flow to both testicles. IMPRESSION: 1. No testicular mass. 2. Left epididymal cyst. 3. Bilateral varicoceles. Assessment & Plan Assessment & Plan (1) Epididymal cyst: Code(s): N50.3 - Cyst of epididymis Category: Medical (2) Testicular pain, right: Code(s): N50.811 - Right testicular pain Category: Medical Plan In office urinalysis results reviewed with the patient today; as noted above. Recent scrotal imaging results reviewed with the patient today; as noted above. We did discussed potential causes of testicular discomfort and further interventions. We discussed risks and benefits of these interventions. He denies any bothersome urinary issues or concerns. He reports be happy with current voiding parameters. We discussed OTC measures; we also discussed supportive measures. All questions were answered. Follow-up per doctor's orders; or sooner with any issues, concerns, and or questions. Orders: Orders AMB Urinalysis Automated Today Z13.9 - Encounter for screening, unspecified Prostate Specific Antigen Today N40.0 - Benign prostatic hyperplasia without lower urinary tract symptoms Patient Instructions: The patient had an opportunity to ask questions regarding the treatment plan. All questions were answered. Physical exam, labs, and imaging were discussed and reviewed in detail. As well as risks, benefits, and discussion of treatment choices. No major barriers to understanding were identified. The patient ex pressed understanding and agreement with the above treatment plan. The patient was made aware they should contact our office by phone for worsening of their current condition, the appearance of new symptoms, or with any questions or concerns. Compliance is encouraged with any medications and follow up testing that is ordered. It is a privilege to be allowed the opportunity to participate in? your urological care.? Again, if you have any questions or concerns If you have any questions or concerns please do not hesitate to contact me. The office is [phone]. This note is constructed using voice recognition software. While every effort has been made to ensure accuracy bio medical technician errors may have been included. Yours sincerely, BRET Pérez Coding Level of Care Code New Pt Level 3 (03094) Diagnoses Epididymal cyst N50.3 Testicular pain, right N50.811 CPT Codes Post Residual Void - PVR CPT Code: 65760-Jbsc Void Residual by ultrasound ([id number])
--- OUTSIDE RECORDS SUMMARY | 2024-12-14 16:26 | XMS_ITS | Patient Health Record ---
Author Organization [facility] Address [address] [place] [id number] Care Team Providers Care Mail Processing Machine Operator Name Role Phone DONNELL OKEEFE N.P. Primary [...] nts Influenza Unknown 01/26/2022 Administered given by [facility] in fall Social History Tobacco Use: Social [...] Problem Status W/U Status Risk Notes Problem 132942000 Colon cancer screening (Z12.11) Active confirmed Problem 519657114 Abdominal cramping (R10.9) Active confirmed Plan Of Treatment Future Test Test Name Order Date COLONOSCOPY 10/01/2022 Insurance Providers Payer Name Payer Address Payer Phone Subscriber Number Group Number Insured Name Patient Relationship to Insured Coverage Start Date Coverage End Date [facility]ICA[facility] [address] [place] [address] [id number] ESTUARDO MILLER Self - patient is the insured Medical (General) History Medical History History ICD Code Diabetes mellitus type 2 Hypertension Hyperlipidemia Surgical History Surgery Date(Month/Year) Hydrocele and testicular cyst repair 202 1
--- OUTSIDE RECORDS SUMMARY | 2024-12-14 16:26 | XMS_ITS | Clinical Summary ---
Author Organization [employer] Address [address] [facility] [address] [place] [address] Care Team Providers Care Real Estate Operations Manager Name Role Phone Krista Donnell SKAGGS Primary Care Provider Ata Gutierrez Unavailable Unavail able Jesi Wallace Unavailable Unavailable Karli Montejo PharmD Unavailable [phone] Allergies No known active allergies Medications * This document contains information received from the source organization and may not represent a complete record from that organization. aspirin 81 MG EC tabletIndication s:Type 2 diabetes mellitus with hyperlipidemia (CMS/HCC) ([facility]) Take 1 tablet (81 mg) by mouth Once per day. 90 tablet 3 025 Active FreeStyle lancetsIndicatio ns:Type 2 diabetes mellitus with hyperlipidemia (CMS/HCC) (CMS/[facility]) 1 each by Other route 3 times daily. Use bid, dx type 2 diabetes 100 each 11 025 Active escitalopram (Lexapro) 10 MG tabletIndication s:Depression with anxiety Take 1 tablet (10 mg) by mouth Once per day. 90 tablet 3 025 Active Blood Glucose Monitoring Suppl (ONE TOUCH ULTRA 2) w/Device kitIndications:T ype 2 diabetes mellitus with hyperlipidemia (CMS/HCC) (CMS/HCC) Use as directed to check blood sugar 3 times daily 1 kit Active glucose blood (IntelliBattTouch Ultra) test stripIndications :Type 2 diabetes mellitus with hyperlipidemia (CMS/HCC) (CMS/[facility]) Use to test blood sugar 3 times daily 100 each 025 2025 Active Lancets (OneTouch Delica Plus [id number]) miscIndications: Type 2 diabetes mellitus with hyperlipidemia (CMS/HCC) ([facility]) Test blood sugar 3 times daily 100 each Active metFORMIN (Glucophage) 500 MG tabletIndication s:Type 2 diabetes mellitus with hyperlipidemia (CMS/HCC) ([facility]) TAKE 2 TABLETS BY MOUTH TWICE DAILY WITH FOOD 360 tablet Active Alcohol Swabs (Alcohol Pads) 70 % padsIndications: Type 2 diabetes mellitus with hyperlipidemia (CMS/HCC) ([facility]) Use up to 4 times daily 100 each Active pen needle 32G x 4 mm miscIndications: Type 2 diabetes mellitus with hyperlipidemia (CMS/HCC) ([facility]) Use as instructed with insulin administration once daily 100 each 025 2025 Active glucose (Glutose) 40 % gel oral gelIndications:T ype 2 diabetes mellitus with hyperlipidemia (CMS/HCC) ([facility]) Take 15 g by mouth if needed for low blood sugar. 45 g 11 025 Active Lantus SoloStar 100 UNIT/ML pen INJECT 10 UNITS SUBCUTANEOUSLY DAILY Active atorvastatin (Lipitor) 20 MG tabletIndication s:Type 2 diabetes mellitus with hyperlipidemia (CMS/HCC) ([facility]) Take 1 tablet (20 mg) by mouth at bedtime. 90 tablet Active atorvastatin (Lipitor) 10 MG tabletIndication s:Type 2 diabetes mellitus with hyperlipidemia (CMS/HCC) ([facility]) Take 1 tablet (10 mg) by mouth at bedtime. 90 tablet 3 025 2024 Discontinued(R eorder (will not trigger notification to Pharmacy)) insulin glargine (Lantus) 100 UNIT/ML injectionIndicat ions:Type 2 diabetes mellitus with hyperlipidemia (CMS/HCC) ([facility]) Inject 10 Units under the skin Once daily. 15 mL 025 2024 Discontinued(M ed list cleanup (will not trigger notification to Pharmacy)) Active Problems Problem Noted Date Diagnosed Date Hypertriglyceridemia 12/24/2023 Type 2 diabetes mellitus with hyperlipidemia (CM S/HCC) 06/11/2023 Depression, unspecified 10/12/2022 Assessment & Plan (10/12/2022 10:32 AM EDT): Assessment: Patient with history of depression, (depressed mood, decreased interest in engaging in activities, decreased energy, feelings of guilt around not completing school and occupational function, and passive SI without plan or intent) and difficulty sleeping (one month ago a one week period in which he was unable to sleep and did not feel tired throughout the day). Patient will benefit from OP therapy and exploring additional coping mechanisms. At this time Festus Domingo meets criteria for Visit Diagnoses: Problem List Items Addressed This Visit Other Depression, unspecified Patient ready to address current needs Yes Strengths include strong family support and a variety of interest that he utilizes when coping (art, music, prayer). PLAN: 1. Follow up with [facility]: Not recommended for follow-up 2. Patient goal is to engage in OP therapy to decrease depressive symptoms and increase coping mechanisms 3. Behavioral Recommendations a. 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 Yoga c. Continue art, music and prayer Hypertension associated with diabetes 07/05/2022 Benign essential hypertension 08/12/2019 Encounters Date Type Department Care Team Description 11/20/2024 Telephone [facility] [place] [address] Donnell Okeefe ANP Cancelling appt 11/16/2024 Travel 11/02/2024 Telephone [facility] [place] [address] Donnell Okeefe ANP January10/26/2024 Orders Only [facility] [place] [address] Donnell Okeefe ANP 10/19/2024 Travel 10/12/2024 Travel 10/07/2024 Orders Only [facility] [place] [address] Chad Stock MD Type 2 diabetes mellitus with hyperlipidemia (CMS/HCC) (CMS/HCC) (Primary Dx) 09/28/2024 Telephone [facility] [place] [address] Chad Stock MD 09/25/2024 11:15 AM EDT Office Visit [facility] [place] [address] Donnell Okeefe ANP Polyarthralgia (Primary Dx); Type 2 diabetes mellitus with hyperlipidemia (CMS/HCC) (CMS/HCC) 09/25/2024 Telephone [facility] [place] [address] Donnell Okeefe ANP 09/25/2024 Telephone [facility] [place] [address] Donnell Okeefe ANP Appointment Request 09/25/2024 Travel 09/24/2024 Telephone [facility] [place] [address] Donnell Okeefe ANP chart prep 09/22/2024 Results Follow-Up [facility] [place] [address] Donnell Okeefe ANP US Scrotum from Last 3 Months Immunizations Immunization Administration Dates Next Due Hep B, adult 10/19/2024 INFLUENZA VACCINE QUADRIVALE NT RECOMBINANT PRESERVATIVE FREE RIV4 01/20/2020 Influenza injectable quadrivalent preservative f ree 02/12/2022 Influenza, High Dose Seasonal, Preservative Free 03/16/2024 Influenza, IIV3, injectable 01/26/2022, 1 Pfizer Covid-19 Vaccine 12+ 03/16/2024, 4 Pneumococcal Conjugate PCV 20 06/11/2023 Tdap 07/10/2019,02/05/2011 Zoster, Recombinant 03/08/2020,01/04/2020 Social History Tobacco Use Types Packs/Day Years Used Date Smoking Tobacco: Never Smokeless Tobacco: Never Tobacco Cessation:Counseling Given: Not Answered Alcohol Use Standard Drinks/Week Comments Not Currently 0 (1 standard drink = 0.6 oz pur e alcohol) Alcohol Answer Date Recorded How often do you have a drink containing alcohol ? 0 04/02/2023 How many drinks containing a lcohol do you have on a typical day when you are drinking? 0 04/02/2023 How often do you have six or more drinks on one occasion? 0 04/02/2023 Depression Answer Date Recorded Patient Health Questionnaire-9 Score 0 06/11/2023 Patient Health Questionnaire-9 Score 0 06/11/2023 Last PHQ-9: Questionnaire Data Not on file 0 06/11/2023 Housing Stability Answer Date Recorded What is your housing situation today? I have [place] 12/09/[address] you li ve. Do you have problems with any of the following? None of the above 12/09/2023 Food Insecurity Answer Date Recorded Within the past 12 months, y ou worried that your food would run out before you got money to buy more: Never True 12/09/2023 Within the past 12 months,th e food you bought just didn't last and you didn't have enough money to get more: Never True Transportation Answer Date Recorded In the past 12 months, has l ack of transportation kept you from medical appts, meetings, work or from getting things needed for daily living? No 06/16/2024 Intimate Partner Violence Answer Date R ecorded Within the last year, have y ou been afraid of your partner or ex-partner? 1 04/02/2023 Within the last year, have y ou been humiliated or emotionally abused in other ways by your partner or ex-partner? 1 Within the last year, have y ou been kicked, hit, slapped, or otherwise physically hurt by your partner or ex-partner? 1 04/02/2023 Within the last year, have y ou been raped or forced to have any kind of sexual activity by your partner or ex-partner? 1 04/02/2023 Utilities Answer Date Recorded In the past 12 months, has t he electric, gas, oil or water company threatened to shut off services in your home? No 06/16/2024 Depression Answer Date Recorded Patient Health Questionnaire-2 Score 3 12/09/2023 Internet Access Answer Date Recorded Internet Access Q1 Yes 12/23/2023 Internet Access Q2 Not on file 12/23/2023 Sex and Gender Information Value Date Recorded Sex Assigned at Male 02/19/2022 10:36 AM EDT Legal Sex Male 10:36 AM EDT Gender Identity Male 02/19/2022 10:36 AM EDT Sexual Orientation Straight 02/19/2022 10 :36 AM EDT Last Filed Vital Signs Vital Sign Reading Time Taken Comments Blood Pressure 138/70 11/16/2024 12:03 PM EDT Pulse 55 11/16/2024 11:56 AM EDT Temperature 36.3 C (97.3 F) 09/25/2024 11:17 AM EDT Respiratory Rate 20 09/25/2024 11:1 7 AM EDT Oxygen Saturation 97% 09/25/2024 11: 17 AM EDT Inhaled Oxygen Concentration - - Weight 81.6 kg (179 lb 12.8 oz) 025 11:17 AM EDT Height 170.2 cm (5' 7 ) 09/25/2024 11:1 7 AM EDT Body Mass Index 28.16 09/25/2024 11:17 AM EDT Plan of Treatment Upcoming Encounters Date Type Department Care Team (Late st Contact Info) Description 12/25/2024 1:00 PM EDT Medication Management [facility] [address] [place] [address] Karli Montejo, PharmD [address] [place] [address] 02/22/2025 9:00 AM EST Office Visit [facility] [address] [place] [address] Eddie, Camryn, OD [address] [place] [address] Health Maintenance Due Date Last Done Comments CT Colonography 1960 FIT DNA/Cologuard 1960 FIT 1960 FOBT 1960 Sigmoidoscopy 1960 Diabetes: Foot Exam 1968 Eye Exam 1968 RSV Patients and Patients Aged 60 years or older (1 - Risk 60-74 years 1-dose series) 2018 COVID-19 Vaccine ( season) 2024 03/16/2024, 06/11/2023, 04/10/2021, Additional history exists Hepatitis B Vaccines (2 of 3 - 19+ 3-dose series) 11/16/2024 10/19/2024 Depression Screening 12/08/2024 12/09/2023, 06/11/19 24 Influenza Vaccine (#1) 2024 4, 02/12/2022, 01/26/2022, Additional history exists Diabetes: Hemoglobin A1C 01/26/2025 025, 09/25/2024, 06/25/2024, Additional history exists Diabetes: Urine Protein Screening 03/31/2025 03/31/2024, 10/12/2022, 07/21/2019 SDOH Screening 06/16/2025 06/16/2024 Alcohol/Substance Use Screening 06/25/2025 06/25/2024 Tobacco Screening 09/25/2025 09/25/2024 Lipid Panel 10/26/2025 10/26/2024, 03/22, 09/02/2023 DTaP/Tdap/Td Vaccines (3 - Td or Tdap) 07/09/2029 07/10/2019, 02/05/2011 Colonoscopy 10/31/2032 10/31/2022 Colorectal Cancer Screening 10/31/2032 Hepatitis C Screening Completed 07/21/2019 Zoster Vaccines Completed 03/08/2020, 01/04/2020 Pneumococcal Vaccine: 50+ Years Completed 06/11/2023 HIB Vaccines Aged Out No longer eligi ble based on patient's age to complete this topic HPV Vaccines Aged Out No longer eligi ble based on patient's age to complete this topic Hepatitis A Vaccines Aged Out No long er eligible based on patient's age to complete this topic IPV Vaccines Aged Out No longer eligi ble based on patient's age to complete this topic Meningococcal B Vaccine Aged Out No l onger eligible based on patient's age to complete this topic Meningococcal Vaccine Aged Out No cami shannon eligible based on patient's age to complete this topic RSV under 20 months Aged Out No longe r eligible based on patient's age to complete this topic Rotavirus Vaccines Aged Out No longer eligible based on patient's age to complete this topic Procedures Procedure Name Priority Date/Time Associated Diagnosis Comments LIPID PANEL, STANDARD Routine 10/26/2024 9:57 AM EDT BASIC METABOLIC PANEL Routine 10/26/2024 9:57 AM EDT HEPATIC FUNCTION PANEL Routine 10/26/2024 9:57 AM EDT HEMOGLOBIN A1C Routine 10/26/2024 9:57 AM EDT VITAMIN B12 Routine 10/26/2024 9:57 AM EDT POCT GLYCATED HEMOGLOBIN, TOTAL Routine 09/25/2024 11:19 AM EDT Type 2 diabetes mellitus with hyperlipidemia (CMS/HCC) ([facility]/HCC) POCT GLUCOSE Routine 09/25/2024 11:19 AM EDT Type 2 diabetes mellitus with hyperlipidemia (CMS/HCC) ([facility]/HCC) US SCROTUM Routine 09/22/2024 8:34 AM EDT Epididymal cyst ALBUMIN, RANDOM URINE W/CREATININE Routine 03/31/2024 11:52 AM EST HM COLONOSCOPY Routine 10/31/2022 ZZZ HISTORICAL HEPATITIS C ANTIBODY RFLX Routine 07/21/2019 9:34 AM EDT from Last 3 Months or Most Recently Relevant to Health Maintenance Results * (ABNORMAL) Hemoglobin A1c (10/26/2024 9:57 AM EDT) Hemoglobin A1c 9.4(H) <6.0 % [facility] Comment:Hemoglobin A1C Refer ence Range Adults: 4.8 - 6.0 % Non diabetic: < 6.0 % Goal: < 7.0 %Additional Action Suggested: > 8.0 %Note: Hemoglobin A1c results are invalid for patients with abnormal amounts of HbF. Blood transfusions may impact the HbA1c concentration in the patient sample. Estimated Average Glucose 223 mg/dL [facility] Comment:eAG = Estimated ave rage glucose which is %A1C expressed asaverage glucose, using the formula of the I8O-RbwpkiyLjhdeio Glucose study (ADAG), Diabetes Care, Vol.31,#8,Nov. 2007 10/26/2024 9:57 AM EDT 10/26/2024 11:17 AM EDT Donnell Okeefe ANP LAB BLOOD ORDERABLES Final Resul t Performing Organization Address [facility] Co de Phone Number [facility] [address] [place] [phone] * Vitamin B12 (10/26/2024 9:57 AM EDT) Vitamin B12 337 200 - 900 pg/mL [facility] Comment:NORMAL 200-900 PG/ML INDETERMINATE 160-199 PG/ML DEFICIENT < 160 PG/ML 10/26/2024 9:5 7 AM EDT 10/26/2024 11:25 AM EDT Donnell Okeefe [facility] LAB BLOOD ORDERABLES Final Resul t Performing Organization Address [facility] de Phone Number [facility] [address] [place] [phone] * (ABNORMAL) Hepatic Function Panel (10/26/2024 9:57 AM EDT) Bilirubin, Total 1.0 0.0 - 1.0 mg/dL [facility] Bilirubin, Direct 0.3 0.0 - 0.5 mg/dL [facility] Aspartate Amino Transferase 40(H) 5 - 37 U/L [facility] Alanine Aminotransferase 41(H) 0 - 40 U/L [facility] Total Protein 7.3 6.5 - 8.0 g/dL [facility] Albumin Level 4.6 3.5 - 5.0 g/dL [facility] Alkaline Phosphatase 107 39 - 117 U/L [facility] 10/26/2024 9:57 AM EDT 10/26/2024 11:25 AM EDT Donnell Okeefe [facility] LAB BLOOD ORDERABLES Final Resul t Performing Organization Address [facility] Co de Phone Number [facility] [address] [place] [phone] * (ABNORMAL) Lipid Panel, Standard (10/26/2024 9:57 AM EDT) Triglycerides 162(H) <150 mg/dL [facility] Comment:Desirable Triglyceri de: less than 150 mg/dLBorderline High Triglyceride 150-199 mg/dLHigh Triglyceride: 200-499 mg/dLVery High Triglyceride: greater than or equal to 5OO mg/dL Cholesterol 190 <200 mg/dL [facility] Comment:Desirable Cholestero l: less than 200 mg/dLBorderline High Cholesterol: 200-239 mg/dLHigh Cholesterol: greater than 239 mg/dL LDL Cholesterol Calculated 120(H) <100 mg/dL [facility] Comment:Desirable LDL: less than 100 mg/dLNear Optimal/Above Optimal LDL: 110- 129 mg/dLBorderline High LDL: 130-159 mg/dLHigh LDL: 160-189 mg/dLVery High LDL: greater than or equal to 190 mg/dL HDL Cholesterol 38(L) >40 mg/dL [facility] Comment:Desirable HDL: great er than 40 mg/dL Note: This HDL assay may give artificially low results in patients with liver disease. 10/26/2024 9:57 AM EDT 10/26/2024 11:25 AM EDT Donnell Okeefe [facility] LAB BLOOD ORDERABLES Final Resul t [facility] [address] [place] [phone] * (ABNORMAL) Basic Metabolic Panel (10/26/2024 9:57 AM EDT) Sodium 140 135 - 145 mmol/L [facility] Potassium 4.1 3.3 - 5.1 mmol/L [facility] Chloride 107 96 - 108 mmol/L [facility] Carbon Dioxide 25 22 - 29 mmol/L [facility] Anion Gap 12 12 - 20 [facility] Urea Nitrogen (BUN) 12 9 - 16 mg/dL [facility] Creatinine, Serum 0.82 0.5 - 1.4 mg/dL [facility] Estimated Glomerular Filt Rate >60 [facility] Comment:Chronic Kidney Disea se: Estimated GFR < 60 mL/min/[id number] Kidney Disease: Estimated GFR < 15 mL/min/1.73m2 Glucose 153(H) 60 - 115 mg/dL [facility] Calcium 9.0 8.4 - 10.2 mg/dL [facility] 10/26/2024 9:57 AM EDT 10/26/2024 11:25 AM EDT us Donnell Okeefe [facility] BLOOD ORDERABLES Final Resul t [facility] [address] [place] [phone] * (ABNORMAL) POCT HGB A1C (09/25/2024 11:19 AM EDT) Hemoglobin A1C 9.3(A) 4.0 - 6.0 % QC Media Lot # [id number] Lot# Expiration Date , Blood 09/25/2024 11:1 9 AM EDT us Donnell SKAGGS POINT OF CARE TEST ENTER/EDIT OR DERABLES Final Result * (ABNORMAL) POCT Glucose (09/25/2024 11:19 AM EDT) Glucose Blood, POC 259(A) 60 - 200 mg/dL QC Media Lot # [id number] Lot# Expiration Date ,579 Blood Capillary blood specimen / Unknown 09/25/2024 11:19 AM EDT us Donnell Okeefe ANP POINT OF CARE TEST ENTER/EDIT OR DERABLES Final Result * US Scrotum (09/22/2024 8:34 AM EDT) Anatomical Region Laterality Modality Body Ultrasound 09/22/2024 8:34 AM EDT Narrative 09/22/2024 8:35 AM EDT [address] [address] Ultrasound Report Signed Patient: Festus Domingo MR#: [id number] 7 : 1960 Acct:[id number] Age/Sex: 64 / M ADM Date: 09/21/24 Loc: HO.US Attending Dr: Donnell Okeefe NP Ordering Physician: DONNELL OKEEFE NP Date of Service: 09/21/24 Procedure(s): US scrotum Accession Number(s): [id number] cc: DONNELL OKEEFE NP CLINICAL HISTORY: R scrotal swelling, h o epididymal cysts US Scrotum with Doppler Comparison: None Findings: Right testicle measures 4.3 x 1.6 x 2.9 cm in size. Right testicle is of normal echotexture without mass lesion. Right epididymis is unremarkable. Left testicle measures 4.4 x 1.7 x 3.3 cm in size. Left testicle is of normal echotexture without mass lesion. Cyst within the left epididymis measures 9 x 6 mm in size. No scrotal wall thickening. Bilateral varicoceles. Duplex evaluation of the testicles was performed. This included real-time grayscale, color spectral Doppler analysis, and color Doppler flow imaging. Appropriate blood flow to both testicles. IMPRESSION: 1. No testicular mass. 2. Left epididymal cyst. 3. Bilateral varicoceles. This document has been electronically signed by: Avelino Cerda MD on 09/22/2024 08:34:46 Dictated By: Avelino Cerda MD Signed By: <Electronically signed by Avelino Cerda MD in OV> 09/22/24 0835 DD/ TD/TT: 09/22/24 0834 Natural Sciences Department Chair: Procedure Note Donotuseinterpreter, Image - 09/22/[address] [address] Ultrasound Report Signed Patient: Noel Domingo#: [id number] 7 : 1960cct:[id number] Age/Sex: 64 / MADM Date: 09/21/24 Loc: HO.US Attending Dr: Donnell Oekefe NP Ordering Physician: DONNELL OKEEFE NP Date of Service: 09/21/24 Procedure(s): US scrotum Accession Number(s): [id number] cc: DONNELL OKEEFE NP CLINICAL HISTORY: R scrotal swelling, h o epididymal cysts US Scrotum with Doppler Comparison: None Findings: Right testicle measures 4.3 x 1.6 x 2.9 cm in size. Right testicle is of normal echotexture without mass lesion. Right epididymis is unremarkable. Left testicle measures 4.4 x 1.7 x 3.3 cm in size. Left testicle is of normal echotexture without mass lesion. Cyst within the left epididymis measures 9 x 6 mm in size. No scrotal wall thickening. Bilateral varicoceles. Duplex evaluation of the testicles was performed. This included real-time grayscale, color spectral Doppler analysis, and color Doppler flow imaging. Appropriate blood flow to both testicles. IMPRESSION: 1. No testicular mass. 2. Left epididymal cyst. 3. Bilateral varicoceles. This document has been electronically signed by: Avelino Cerda MD on 09/22/2024 08:34:46 Dictated By: Avelino Cerda MD Signed By: <Electronically signed by Avelino Cerda MD in OV> 09/22/2435 DD/ 3 TD/TT: 09/22/24833 Natural Sciences Department Chair: us Donnell SKAGGS IMG US PROCEDURES Final Result * Albumin, Random Urine W/Creatinine (03/31/2024 11:52 AM EST) Creatinine, Urine 213.34 mg/dL [facility] Microalbumin Urine 15.0 mg/L [facility] Microalbum Creatinine Ratio Ur 7.0 <30 ug/mg cr [facility] Comment:Albumin/Creatinine R atio Reference Ranges: Normal: < 30 ug/mg creatinine Microalbuminuria: 30 - 300 ug/mg creatinineClinical Albuminuria: > 300 ug/mg creatinine 03/31/2024 11:5 2 AM EST 03/31/2024 1:10 PM EST us Donnell Okeefe ANP LAB URINE ORDERABLES Final Resul t [facility] [address] [place] [phone] * Hm Colonoscopy (10/31/2022) Colonoscopy Normal Normal Alexis Ortiz MD HEALTH MAINTENANCE Final Res ult * HEPATITIS C ANTIBODY RFLX (07/21/2019 9:34 AM EDT) HEPATITIS C ANTIBODY [facility] Comment: Antibodies to HCV not detected; does not exclude early acute HCV infection. 07/21/2019 9:34 AM EDT us Donnell Okeefe ANP HISTORICAL/NON ORDERABLE LABS Fi nal Result [facility] [address] from Last 3 Months or Most Recently Relevant to Health Maintenance Insurance [employer] MEDICARE REPLACEMENT Care Teams Real Estate Operations Manager Relationship Specialty Start Date End Date Donnell Okeefe ANP [address] [place] [address] PCP - General Family Medicine 07/10/19 Ata Gutierrez Community Health Worker 04/01/23 Jesi Wallace Health Navigator 11/21/23 Karli Montejo, AyleenD [address] [place] [phone] Pharmacist Internal Medicine 10/12/24
--- OUTSIDE RECORDS SUMMARY | 2024-12-14 16:26 | XMS_ITS | Encounter Summary ---
Author Organization [facility] Address [address] [place] [address] 7 [place] [address] Care Team Providers Care Scrubber Operator Name Role Phone Mary Velasco Primary Care Provider [phone] Ata Gutierrez Unavailable Unavail able Jesi Wallace Unavailable Unavailable Karli Montejo PharmD Unavailable [phone] Encounter Details Date Type Department Care Team (Latest Contact Info) Description 09/20/2020 Abstract [facility] CONVERSIONS Dental, Provider, DDS Social [...] Description 12/25/2024 1:00 PM EDT Medication Management [facility] MEDICINE [address] [place] [address] Karli Montejo, PharmD [address] [place] [address] 02/22/2025 9:00 AM EST Office Visit [facility] OPTOMETRY [address] [place] [address] EddieCamryn adair, OD [address] [place] [address] documented as of this encounter Visit Diagnoses Not on filedocumented in this encounter Care Teams Scrubber Operator Relationship Specialty Start Date End Date Mary Velasco ANP [address] [place] [address] PCP - General Family Medicine 07/10/19 Ata Gutierrez Community Health Worker 04/01/23 Jesi Wallace Health Navigator 11/21/23 Karli Montejo PharmD [address] [place] [address] Pharmacist Internal Medicine 10/12/24 documented as of this encounter
== END 2024-12-14 15:38 | disposition home or self-care (01) ==
LOC: HO.HUSH 14:46
PROVIDERS: PCP Nurse Practitioner Primary Care; Visit Provider Nurse Practitioner Family
DX: N50.3 Cyst of epididymis (principal); N50.811 Right testicular pain; Z13.9 Encounter for screening, unspecified
CPT/HCPCS: 99203

== ENCOUNTER → 2024-12-14 14:43 | Outpatient (BNVA) | payer MEDICARE, SELFPAY | PROVIDERS: PCP Nurse Practitioner Primary Care; Visit Provider Nurse Practitioner Family | DX: N50.3 Cyst of epididymis (principal); N50.811 Right testicular pain; N40.0 Benign prostatic hyperplasia without lower urinary tract symptoms | CPT/HCPCS: 51798; 81003; 99202 ==

== ENCOUNTER 2025-01-11 10:33 | Outpatient (REF) | payer MEDICARE, SELFPAY ==
[2025-01-11 12:07] LABS: Alanine Aminotransferase 42 U/L (0-40); Albumin Level 4.5 g/dL (3.5-5.0); Alkaline Phosphatase 114 U/L (39-117); Aspartate Amino Transferase 41 U/L (5-37); Cholesterol 191 mg/dL (<200); HDL Cholesterol 36 mg/dL (>40); Total Protein 7.4 g/dL (6.5-8.0); Triglycerides 317 mg/dL (<150)
[2025-01-11 12:24] LABS: Prostate Specific Antigen 0.22 ng/mL (<0.05-4.0)
--- OUTSIDE RECORDS SUMMARY | 2025-01-11 12:57 | XMS_ITS | Encounter Summary ---
Author Organization [employer] Address [address] [facility] 7t [place] [address] Care Team Providers Care Awake Overnight Counselor Name Role Phone Mary Velasco Primary Care Provider [phone] Ata Gutierrez Unavailable Unavail able Jesi Wallace Unavailable Unavailable Karli Montejo PharmD Unavailable [phone] Encounter Details Date Type Department Care Team (Late st Contact Info) Description 01/06/2025 Telephone [facility] MEDICINE [address] [place], [place] [phone] Mary Velasco ANP [address] [place], [place] [phone] Social History Tobacco Use Types Packs/Day Years Used Date Smoking Tobacco: Never Smokeless Tobacco: Never Alcohol Use Standard Drinks/Week Comments Not Currently [...] AM EDT documented as of this encounter Miscellaneous Notes * Telephone Encounter - Keri Wan - 01/06/2025 11:44 AM EDT Pharmacy [facility] attempted outreach call on 01/06/25 for CDTM - Diabetes appointment; however, unable to reach patient. LVM for patient to contact Keri Wan at [phone]. documented in this encounter Plan of Treatment Upcoming Encounters Date Type Department Care Team (Late st Contact Info) Description 02/22/2025 9:00 AM EST Office Visit [facility] OPTOMETRY [address] [place] [address] Camryn Morgan, OD [address] [place], [place] [phone] documented as of this encounter Visit Diagnoses Not on filedocumented in this encounter Additional Health Concerns Assessment Noted Time PHQ-9 Depression Total Score: 0 06/11/19 9:31 AM EST documented as of this encounter Care Teams Awake Overnight Counselor Relationship Specialty Start Date End Date Mary Velasco ANP [address] [place], [place] [phone] PCP - General Family Medicine 07/10/19 Ata Gutierrez Community Health Worker 04/01/23 Jesi Wallace Health Navigator 11/21/23 Karli Montejo, Ludmila [address] [place], [place] [phone] Pharmacist Internal Medicine 10/12/24 documented as of this encounter
--- OUTSIDE RECORDS SUMMARY | 2025-01-11 12:57 | XMS_ITS | Encounter Summary ---
Author Organization [employer] Address [address] [place] [address] 7t [place] [address] Care Team Providers Care Agricultural Education Teacher Name Role Phone Mary Velasco Primary Care Provider [phone] Ata Gutierrez Unavailable Unavail able Jesi Wallace Unavailable Unavailable Karli Montejo PharmD Unavailable [phone] Encounter Details Date Type Department Care Team (Late st Contact Info) Description 01/11/2025 Orders Only [facility] [place] [facility] MEDICINE [address] [place], [place] [phone] Mary Velasco ANP [address] [place], [place] [phone] Social History Tobacco Use Types Packs/Day Years [...] Description 02/22/2025 9:00 AM EST Office Visit [facility] [place] [facility] OPTOMETRY [address] [place] [address] Eddie, Camryn, OD [address] [place] [address] documented as of this encounter Procedures Procedure Name Priority Date/Time Associated Diagnosis Comments PSA, TOTAL Routine 01/11/2025 10:40 AM EDT HEPATIC FUNCTION PANEL Routine 01/11/2025 10:40 AM EDT LIPID PANEL, STANDARD Routine 01/11/2025 10:40 AM EDT documented in this encounter Results * PSA,Total (01/11/2025 10:40 AM EDT) Prostate Specific Antigen 0.22 <0.05 - 4.0 ng/mL [facility] Comment:PSA methodology: Domenico Irizarry i ChemiluminescentMicroparticle Immunoassay (CMIA) 01/11/2025 10:4 0 AM EDT 01/11/2025 11:17 AM EDT us Generic External Data Provider LAB BLOOD ORDERAB LES Final Result [facility] [address] [place] [phone] * (ABNORMAL) Lipid Panel, Standard (01/11/2025 10:40 AM EDT) Triglycerides 317(H) <150 mg/dL [facility] Comment:Desirable Triglyceri de: less than 150 mg/dLBorderline High Triglyceride 150-199 mg/dLHigh Triglyceride: 200-499 mg/dLVery High Triglyceride: greater than or equal to 5OO mg/dL Cholesterol 191 <200 mg/dL [facility] Comment:Desirable Cholestero l: less than 200 mg/dLBorderline High Cholesterol: 200-239 mg/dLHigh Cholesterol: greater than 239 mg/dL LDL Cholesterol Calculated 92 <100 mg/dL [facility] Comment:Desirable LDL: less than 100 mg/dLNear Optimal/Above Optimal LDL: 110- 129 mg/dLBorderline High LDL: 130-159 mg/dLHigh LDL: 160-189 mg/dLVery High LDL: greater than or equal to 190 mg/dL HDL Cholesterol 36(L) >40 mg/dL [facility] Comment:Desirable HDL: great er than 40 mg/dL Note: This HDL assay may give artificially low results in patients with liver disease. 01/11/2025 10:4 0 AM EDT 01/11/2025 11:17 AM EDT Mary Velasco ANP LAB BLOOD ORDERABLES Final Resul t Performing Organization Address [facility] de Phone Number [facility] [address] [place] [phone] * (ABNORMAL) Hepatic Function Panel (01/11/2025 10:40 AM EDT) Bilirubin, Total 1.2(H) 0.0 - 1.0 mg/dL [facility] Bilirubin, Direct 0.2 0.0 - 0.5 mg/dL [facility] Aspartate Amino Transferase 41(H) 5 - 37 U/L [facility] Comment:Slight Hemolysis.Int erpret result with caution. Alanine Aminotransferase 42(H) 0 - 40 U/L [facility] Total Protein 7.4 6.5 - 8.0 g/dL [facility] Albumin Level 4.5 3.5 - 5.0 g/dL [facility] Alkaline Phosphatase 114 39 - 117 U/L [facility] 01/11/2025 10:4 0 AM EDT 01/11/2025 11:17 AM EDT Mary Velasco ANP LAB BLOOD ORDERABLES Final Resul t Performing Organization Address [facility] de Phone Number [facility] [address] [place] [phone] documented in this encounter Visit Diagnoses Not on filedocumented in this encounter Additional Health Concerns Assessment Noted Time PHQ-9 Depression Total Score: 0 06/11/19 24 9:31 AM EST documented as of this encounter Care Teams Agricultural Education Teacher Relationship Specialty Start Date End Date Mary Velasco ANP [address] [place] [address] PCP - General Family Medicine 07/10/19 Ata Gutierrez Community Health Worker 04/01/23 Jesi Wallace Health Navigator 11/21/23 Karli Montejo, AyleenD [address] [place] [address] Pharmacist Internal Medicine 10/12/24 documented as of this encounter
--- OUTSIDE RECORDS SUMMARY | 2025-01-11 12:57 | XMS_ITS | Patient Health Record ---
Author Organization [facility] Address [address] [place] [phone] Care Team Providers Care Superintendent Logging Name Role Phone DONNELL OKEEFE N.P. Primary [...] nts Influenza Unknown 01/26/2022 Administered given by [facility] Social History Tobacco Use: Social [...] Problem Status W/U Status Risk Notes Problem [id number] Colon cancer screening (Z12.11) Active confirmed Problem [id number] Abdominal cramping (R10.9) Active confirmed Plan Of Treatment Future Test Test Name Order Date COLONOSCOPY 10/01/2022 Insurance Providers Payer Name Payer Address Payer Phone Subscriber Number Group Number Insured Name Patient Relationship to Insured Coverage Start Date Coverage End Date [facility] [address] [place] [address] [phone] [id number] ESTUARDO MILLER Self - patient is the insured Medical (General) History Medical History History ICD Code Diabetes mellitus type 2 Hypertension Hyperlipidemia Surgical History Surgery Date(Month/Year) Hydrocele and testicular cyst repair 202 1
--- OUTSIDE RECORDS SUMMARY | 2025-01-11 12:57 | XMS_ITS | Clinical Summary ---
Author Organization [employer] Address [address] [facility] 7t [place] [address] Care Team Providers Care Carcass Washer Name Role Phone Krista Mary SKAGGS Primary Care Provider [phone] Ata Gutierrez Unavailable Unavail able Jesi Wallace Unavailable Unavailable Karli Montejo PharmD Unavailable [phone] Allergies No known active allergies Medications * This document contains information received from the source organization and may not represent a complete record from that organization. aspirin 81 MG EC tabletIndications: Type 2 diabetes mellitus with hyperlipidemia (CMS/HCC) ([facility]) Take 1 tablet (81 mg) by mouth Once per day. 90 tablet 3 06/26/19 25 Active FreeStyle lancetsIndications :Type 2 diabetes mellitus with hyperlipidemia (CMS/HCC) ([facility]) 1 each by Other route 3 times daily. Use bid, dx type 2 diabetes 100 each 11 06/26/19 25 Active escitalopram (Lexapro) 10 MG tabletIndications: Depression with anxiety Take 1 tablet (10 mg) by mouth Once per day. 90 tablet 3 06/26/19 25 Active Blood Glucose Monitoring Suppl (ONE TOUCH ULTRA 2) w/Device kitIndications:Typ e 2 diabetes mellitus with hyperlipidemia (CMS/HCC) ([facility]) Use as directed to check blood sugar 3 times daily 1 kit 10/15/19 25 Active glucose blood (HeartbeatTouch Ultra) test stripIndications:T ype 2 diabetes mellitus with hyperlipidemia (CMS/HCC) ([facility]) Use to test blood sugar 3 times daily 100 each 11 10/15/19 25 026 Active Lancets (OneTouch Delica Plus Appjny39B) miscIndications:Ty pe 2 diabetes mellitus with hyperlipidemia (CMS/HCC) ([facility]) Test blood sugar 3 times daily 100 each 10/15/19 25 Active metFORMIN (Glucophage) 500 MG tabletIndications: Type 2 diabetes mellitus with hyperlipidemia (CMS/HCC) ([facility]) TAKE 2 TABLETS BY MOUTH TWICE DAILY WITH FOOD 360 tablet 10/20/19 25 Active Alcohol Swabs (Alcohol Pads) 70 % padsIndications:Ty pe 2 diabetes mellitus with hyperlipidemia (CMS/HCC) ([facility]) Use up to 4 times daily 100 each 10/20/19 25 Active pen needle 32G x 4 mm miscIndications:Ty pe 2 diabetes mellitus with hyperlipidemia (CMS/HCC) ([facility]) Use as instructed with insulin administration once daily 100 each 10/20/19 25 026 Active glucose (Glutose) 40 % gel oral gelIndications:Typ e 2 diabetes mellitus with hyperlipidemia (CMS/HCC) ([facility]) Take 15 g by mouth if needed for low blood sugar. 45 g 11 10/21/19 25 Active Lantus SoloStar 100 UNIT/ML pen INJECT 10 UNITS SUBCUTANEOUSLY DAILY 10/20/19 25 Active atorvastatin (Lipitor) 20 MG tabletIndications: Type 2 diabetes mellitus with hyperlipidemia (CMS/HCC) ([facility]) Take 1 tablet (20 mg) by mouth at bedtime. 90 tablet 11/17/19 25 Active Active Problems Problem Noted Date Diagnosed Date [...] music, prayer). PLAN: 1. Follow up with [facility]: Not recommended for follow-up 2. Patient goal is to engage in OP therapy to decrease depressive symptoms and increase coping mechanisms 3. Behavioral Recommendations a. Guided deep breathing via the PTSD assistant field hockey coach urszula b. Yoga c. Continue art, music and prayer Hypertension associated with diabetes 07/05/2022 Benign essential hypertension 08/12/2019 Encounters Date Type Department Care Team Description 01/11/2025 Orders Only [facility] MEDICINE [facility] [place] [address] Mary Velasco ANP 01/06/2025 Telephone [facility] [place] [address] Mary Velasco ANP 01/01/2025 Telephone [facility] [place] [address] Mary Velasco ANP 01/01/2025 Telephone [facility] MEDICINE [address] [place] [phone] Mary Velasco ANP Appointment Request 12/24/2024 Telephone [facility] [place] [address] Mary Velasco ANP Appointment Request 11/20/2024 Telephone [facility] [place] [address] Mary Velasco ANP Cancelling appt 11/16/2024 Travel 11/02/2024 Telephone [facility] [place] [address] Mary Velasco ANP January10/26/2024 Orders Only [facility] [place] [address] Mary Velasco ANP 10/19/2024 Travel 10/12/2024 Travel from Last 3 Months Immunizations Immunization Administration [...] Description 02/22/2025 9:00 AM EST Office Visit [facility] OPTOMETRY [address] [place] [address] Eddie, Camryn, OD [address] [place] [address] Health Maintenance Due Date Last Done Comments CT Colonography 1958 FIT DNA/Cologuard 1958 FIT 1958 FOBT 1958 Sigmoidoscopy 1958 Diabetes: Foot Exam 1968 Eye Exam 1968 RSV Patients and Patients Aged 60 years or older (1 - Risk 60-74 years 1-dose series) 2018 Hepatitis B Vaccines (2 of 3 - 19+ 3-dose series) 11/16/2024 10/19/2024 Depression Screening 12/08/2024 12/09/2023, 06/11/19 24 COVID-19 Vaccine ( season) 2024 03/16/2024, 06/11/2023, 04/10/2021, Additional history exists Influenza Vaccine (#1) 2024 , 02/12/2022, 01/26/2022, Additional history exists Diabetes: Hemoglobin A1C 01/26/2025 025, 09/25/2024, 06/25/2024, Additional history exists Diabetes: Urine Protein Screening 03/31/2025 03/31/2024, 10/12/2022, 07/21/2019 SDOH Screening 06/16/2025 06/16/2024 Alcohol/Substance Use Screening 06/25/2025 06/25/2024 Tobacco Screening 09/25/2025 09/25/2024 Lipid Panel 01/11/2026 01/11/2025, 07/0 10/2024, 03/31/2024, Additional history exists DTaP/Tdap/Td Vaccines (3 - Td or Tdap) [...] PSA, TOTAL Routine 01/11/2025 10:40 AM EDT LIPID PANEL, STANDARD Routine 01/11/2025 10:40 AM EDT HEPATIC FUNCTION PANEL Routine 01/11/2025 10:40 AM EDT LIPID PANEL, STANDARD Routine 10/26/2024 9:57 AM EDT BASIC METABOLIC PANEL Routine 10/26/2024 9:57 AM EDT HEPATIC FUNCTION PANEL Routine 10/26/2024 9:57 AM EDT HEMOGLOBIN A1C Routine 10/26/2024 9:57 AM EDT VITAMIN B12 Routine 10/26/2024 9:57 AM EDT ALBUMIN, RANDOM URINE W/CREATININE Routine 03/31/2024 11:52 AM EST HM COLONOSCOPY Routine 10/31/2022 ZZZ HISTORICAL HEPATITIS C ANTIBODY RFLX Routine 07/21/2019 9:34 AM EDT from Last 3 Months or Most Recently Relevant to Health Maintenance Results * PSA,Total (01/11/2025 10:40 AM EDT) Prostate Specific Antigen 0.22 <0.05 - 4.0 ng/mL [facility] Comment:PSA methodology: Domenico Irizarry i ChemiluminescentMicroparticle Immunoassay (CMIA) 01/11/2025 10:4 0 AM EDT 01/11/2025 11:17 AM EDT us Generic External Data Provider LAB BLOOD ORDERAB LES Final Result Performing Organization Address [facility] Co de Phone Number [facility] [address] [place] [phone] * (ABNORMAL) Hepatic Function Panel (01/11/2025 10:40 AM EDT) Only the most recent of2 resultswithin the time period is included. Bilirubin, Total 1.2(H) 0.0 - 1.0 mg/dL [facility] Bilirubin, Direct 0.2 0.0 - 0.5 mg/dL [facility] Aspartate Amino Transferase 41(H) 5 - 37 U/L [facility] Comment:Slight Hemolysis.Int erpret result with caution. Alanine Aminotransferase 42(H) 0 - 40 U/L [facility] Total Protein 7.4 6.5 - 8.0 g/dL [facility] Albumin Level 4.5 3.5 - 5.0 g/dL [facility] Alkaline Phosphatase 114 39 - 117 U/L [facility] 01/11/2025 10:4 0 AM EDT 01/11/2025 11:17 AM EDT [facility] LAB BLOOD ORDERABLES Final Resul t Performing Organization Address [facility] Co de Phone Number [facility] [address] [place] [phone] * (ABNORMAL) Lipid Panel, Standard (01/11/2025 10:40 AM EDT) Only the most recent of2 resultswithin the time period is included. Triglycerides 317(H) <150 mg/dL [facility] Comment:Desirable Triglyceri de: less than 150 mg/dLBorderline High Triglyceride 150-199 mg/dLHigh Triglyceride: 200-499 mg/dLVery High Triglyceride: greater than or equal to 5OO mg/dL Cholesterol 191 <200 mg/dL [facility] Comment:Desirable Cholestero l: less than 200 mg/dLBorderline High Cholesterol: 200-239 mg/dLHigh Cholesterol: greater than 239 mg/dL LDL Cholesterol Calculated 92 <100 mg/dL [facility] Comment:Desirable LDL: less than 100 mg/dLNear Optimal/Above Optimal LDL: 110- 129 mg/dLBorderline High LDL: 130-159 mg/dLHigh LDL: 160-189 mg/dLVery High LDL: greater than or equal to 190 mg/dL HDL Cholesterol 36(L) >40 mg/dL [facility] Comment:Desirable HDL: great er than 40 mg/dL Note: This HDL assay may give artificially low results in patients with liver disease. 01/11/2025 10:4 0 AM EDT 01/11/2025 11:17 AM EDT Mary Velasco ANP LAB BLOOD ORDERABLES Final Resul t Performing Organization Address [facility] de Phone Number [facility] [address] [place] [phone] * (ABNORMAL) Hemoglobin A1c (10/26/2024 9:57 AM EDT) Hemoglobin A1c 9.4(H) <6.0 % [facility] Comment:Hemoglobin A1C Refer ence Range Adults: 4.8 - 6.0 % Non diabetic: < 6.0 % Goal: < 7.0 %Additional Action Suggested: > 8.0 %Note: Hemoglobin A1c results are invalid for patients with abnormal amounts of HbF. Blood transfusions may impact the HbA1c concentration in the patient sample. Estimated Average Glucose 223 mg/dL [facility] Comment:eAG = Estimated ave rage glucose which is %A1C expressed asaverage glucose, using the formula of the Z0U-NrykkerWayscry Glucose study (ADAG), Diabetes Care, Vol.31,#8,Nov. 2007 10/26/2024 9:57 AM EDT 10/26/2024 11:17 AM EDT Mary Velasco ANP LAB BLOOD ORDERABLES Final Resul t Performing Organization Address [facility] Co de Phone Number [facility] [address] [place] [phone] * Vitamin B12 (10/26/2024 9:57 AM EDT) Vitamin B12 337 200 - 900 pg/mL [facility] Comment:NORMAL 200-900 PG/ML INDETERMINATE 160-199 PG/ML DEFICIENT < 160 PG/ML 10/26/2024 9:57 AM EDT 10/26/2024 11:25 AM EDT Mary Velasco ANP LAB BLOOD ORDERABLES Final Resul t Performing Organization Address [facility] Co de Phone Number [facility] [address] [place] [phone] * (ABNORMAL) Basic Metabolic Panel (10/26/2024 9:57 AM EDT) Pathologist [facility] Sodium 140 135 - 145 mmol/L [facility] Potassium 4.1 3.3 - 5.1 mmol/L [facility] Chloride 107 96 - 108 mmol/L [facility] Carbon Dioxide 25 22 - 29 mmol/L [facility] Anion Gap 12 12 - 20 [facility] Urea Nitrogen (BUN) 12 9 - 16 mg/dL [facility] Creatinine, Serum 0.82 0.5 - 1.4 mg/dL [facility] Estimated Glomerular Filt Rate >60 [facility] Comment:Chronic Kidney Disea se: Estimated GFR < 60 mL/min/[id number] Kidney Disease: Estimated GFR < 15 mL/min/1.73m2 Glucose 153(H) 60 - 115 mg/dL [facility] Calcium 9.0 8.4 - 10.2 mg/dL [facility] 10/26/2024 9:57 AM EDT 10/26/2024 11:25 AM EDT Mary Velasco ANP LAB BLOOD ORDERABLES Final Resul t Performing Organization Address [facility]/ZIP Co de Phone Number [facility] [address] [place] [phone] * Albumin, Random Urine W/Creatinine (03/31/2024 11:52 AM EST) Creatinine, Urine 213.34 mg/dL [facility] Microalbumin Urine 15.0 mg/L [facility] Microalbum Creatinine Ratio Ur 7.0 <30 ug/mg cr [facility] Comment:Albumin/Creatinine R atio Reference Ranges: Normal: < 30 ug/mg creatinine Microalbuminuria: 30 - 300 ug/mg creatinineClinical Albuminuria: > 300 ug/mg creatinine 03/31/2024 11:5 2 AM EST 03/31/2024 1:10 PM EST us Mary Velasco ANP LAB URINE ORDERABLES Final Resul t [facility] [address] [place] [phone] * Hm Colonoscopy (10/31/2022) Colonoscopy Normal Normal Alexis Ortiz MD HEALTH MAINTENANCE Final Res ult * HEPATITIS C ANTIBODY RFLX (07/21/2019 9:34 AM EDT) HEPATITIS C ANTIBODY [facility] Comment: Antibodies to HCV not detected; does not exclude early acute HCV infection. 07/21/2019 9:34 AM EDT us Mary Velasco ANP HISTORICAL/NON ORDERABLE LABS Fi nal Result [facility] [address] from Last 3 Months or Most Recently Relevant to Health Maintenance Insurance [employer] MEDICARE REPLACEMENT Care Teams Carcass Washer Relationship Specialty Start Date End Date Mary Velasco ANP [address] [place] [address] PCP - General Family Medicine 07/10/19 Ata Gutierrez Community Health Worker 04/01/23 Jesi Wallace Health Navigator 11/21/23 Karli Montejo, Ludmila [address] [place] [address] Pharmacist Internal Medicine 10/12/24
--- OUTSIDE RECORDS SUMMARY | 2025-01-11 12:57 | XMS_ITS | Encounter Summary ---
Author Organization [facility] Address [address] [place] [address] 7 [place] [address] Care Team Providers Care Industrial Safety And Health Specialist Name Role Phone Mary Velasco Primary Care Provider [phone] Ata Gutierrez Unavailable Unavail able Jesi Wallace Unavailable Unavailable Karli Montejo PharmD Unavailable [phone] Encounter Details Date Type Department Care Team (Latest Contact Info) Description 09/20/2020 Abstract [facility] CONVERSIONS Dental, Provider, DDS Social History [...] Description 02/22/2025 9:00 AM EST Office Visit [facility] OPTOMETRY [address] [place] [address] Eddie, Camryn, OD [address] [place] [address] documented as of this encounter Visit Diagnoses Not on filedocumented in this encounter Care Teams Industrial Safety And Health Specialist Relationship Specialty Start Date End Date Mary Velasco ANP [address] [place] [address] PCP - General Family Medicine 07/10/19 Ata Gutierrez Community Health Worker 04/01/23 Jesi Wallace Health Navigator 11/21/23 Karli Montejo, PharmD [address] [place] [address] Pharmacist Internal Medicine 10/12/24 documented as of this encounter
--- OUTSIDE RECORDS SUMMARY | 2025-01-11 12:57 | XMS_ITS | Encounter Summary ---
Author Organization [employer] Address [address] [facility] 7t [place] [address] Care Team Providers Care Crane Rigger Name Role Phone Mary Velasco Primary Care Provider [phone] Ata Gutierrez Unavailable Unavail able Jesi Wlalace Unavailable Unavailable Karli Montejo PharmD Unavailable [phone] Reason for Visit * Reason Onset Date Comments Appointment Request 01/01/2025 Encounter Details Date Type Department Care Team (Late st Contact Info) Description 01/01/2025 Telephone [facility] MEDICINE [address] [place], [place] [phone] Mary Velasco ANP [address] [place], [place] [phone] Appointment Request Social History Tobacco Use Types Packs/Day Years [...] encounter Miscellaneous Notes * Telephone Encounter - Janett Yanes - 01/08/2025 4:12 PM EDT 3rd attempt to schedule CDTM no answer left vm. * Telephone Encounter - Janett Yanes - 01/04/2025 10:10 AM EDT 2nd attempt. Called Patient no answer left vm. Advised to call back and r/s appointment with Karli. If Patient calls back contact Todd MCBRIDE. * Telephone Encounter - Janett Yanes - 01/01/2025 12:01 PM EDT Called pt left vm, advised to called back and reschedule with karli for cdtm. If Patient calls back contact todd mcbride. documented in this encounter Plan of Treatment Upcoming Encounters Date Type Department Care Team (Late st Contact Info) Description 02/22/2025 9:00 AM EST Office Visit [facility] OPTOMETRY [address] [place] [address] Camryn Morgan, OD [address] [place] [address] documented as of this encounter Visit Diagnoses Not on filedocumented in this encounter Additional Health Concerns Assessment Noted Time PHQ-9 Depression Total Score: 0 06/11/19 24 9:31 AM EST documented as of this encounter Care Teams Crane Rigger Relationship Specialty Start Date End Date Mary Velasco ANP [address] [place] [address] PCP - General Family Medicine 07/10/19 Ata Gutierrez Community Health Worker 04/01/23 Jesi Wallace Health Navigator 11/21/23 Karli Montejo, Ludmila [address] [place] [address] Pharmacist Internal Medicine 10/12/24 documented as of this encounter
== END 2025-01-11 10:34 | disposition home or self-care (01) ==
LOC: HO.HHCL 10:33
PROVIDERS: Nurse Practitioner Family; PCP Nurse Practitioner Primary Care; Visit Provider Nurse Practitioner Primary Care
DX: Z12.5 Encounter for screening for malignant neoplasm of prostate (principal); E11.69 Type 2 diabetes mellitus with other specified complication; N40.0 Benign prostatic hyperplasia without lower urinary tract symptoms; E78.1 Pure hyperglyceridemia; E78.5 Hyperlipidemia, unspecified
CPT/HCPCS: 36415; 80061; 80076; 84153

== ENCOUNTER 2025-01-15 13:03 | Outpatient (AMB) | payer MEDICARE, SELFPAY ==
--- NOTE | 2025-01-15 13:02 | MHC.OFFVIS ---
Intake Visit Reasons: Scrotal exam Intake Note: Patient is present for SCROTAL EXAM Urology Medication:NONE Antibiotic Allergy:NONE Blood Thinner:NONE LAST TODAY'S PVR:15ML'S Group Home Counselor Required: No Accompanied by: Self / Same As Patient Allergies No Known Allergies Allergy (Verified 01/15/25 13:03) HPI Comments Details: Festus is a pleasant male. He is a patient of Dr. Velasco. He is seen for the following urologic conditions - epididymal cyst - testicular pain - lower urinary tract symptoms Prior evaluation with Urology nurse-practitioner Scrotal ultrasound noted no testicular masses Bilateral varicocele subclinical Left epididymal head cyst recurrent Right epididymal discomfort Persistent on exam Cord block performed Discussed microscopic targeted denervation Bilateral hydrocelectomy performed 2020 Diabetes poorly controlled HbA1c 9.4 11/13 [facility] Medical History Testicular pain BPH (benign prostatic hyperplasia) Diabetes mellitus HTN (hypertension) Surgical History Status post repair of hydrocele Family History Sister HTN (hypertension) Social History (Updated 02/10/24 @ 14:32 by Mohsen Lopez) Alcohol intake: never Patient Tobacco Use Status: Never used Tobacco Second Hand Smoke Exposure: No Current occupational status: employed 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 Review of Systems Const Denies chills and Denies fever(s) Card Reports no additional complaints and Denies syncope Resp Denies cough GI Denies abdominal pain and Denies heartburn Reports as per HPI and Denies change in libido Neuro Denies syncope Psych Denies change in libido Endo Denies change in libido Physical Exam Const General: cooperative, healthy appearing, comfortable and no acute distress Orientation/consciousness: patient oriented x3 HEENT Face and sinus: Yes normal facial exam Mouth: moist mucous membranes Neck Neck: Yes normal visual inspection, Yes full ROM and Yes trachea midline Chest Chest palpation & inspection: normal inspection of the chest Resp Effort & Inspection: normal respiratory effort, able to speak in complete sentences and no respiratory distress GI Inspection: Yes normal to inspection Back/Spine/Pelvis Cervical Spine: normal cervical lordosis Thoracic/Lumbar Spine: thoracic and lumbar spine normal to inspection Skin General skin exam: no rashes or lesions noted Neuro General: patient oriented x3, gait normal, tone normal and moves all extremities Extrem General: Yes normal to inspection and Yes capillary refill normal Office Procedures Therapeutic Injection Therapeutic Injection Details: General Femoral Cord - Block Office procedure - Genitofemoral Cord Injection The right inguinal ring was palpated with the left hand. The inguinal cord was palpated 1cm lateral to the lateral tubercle on the symphysis pubis. Alcohol prep was applied. A 22 gauge 3.5 in Chiba needle was advanced and under tactile guidance the tip was placed through the inguinal cord.? Negative aspiration was performed.? A fan-like distribution for injection of a total of 10 cc was made.? The injection consisted of 10 cc of 0.5% bupivacaine The injection was well tolerated with only transient pain. CPT 89276 ICD N50.819 All charges added?: Additional procedure code (CPT) needed (99332) Office Meds bupivacaine (PF) 0.5 % (5 mg/mL) injection solution Performing Provider: Niranjan Steel MD [facility] Documented (not given) by: Niranjan Steel MD on 01/15/25 13:38 Dose Route Admin Location Dispensed Lot Number Expiration Date NDC Supervisor Smoke Control 10 mL Infiltration mL Total Dispensed Waste n/a n/a Assessment & Plan Assessment & Plan (1) Testicular pain, right: Code(s): N50.811 - Right testicular pain Category: Medical Plan Cord block performed Orders: Orders AMB Trigger Point Injection Today N50.811 - Right testicular pain Medications: New bupivacaine (PF) 10 mL Infiltration ONCE 10 mL 0RF N50.811 - Right testicular pain Patient Instructions: This note is constructed using voice recognition software. While every effort has been made to ensure accuracy bar pointer errors may have been included. Imaging studies, laboratory and physical exam results were discussed and reviewed in detail. No major barriers to patient understanding were identified. An opportunity to ask questions regarding the treatment plan was provided. All questions were answered. The patient expressed understanding and agreement with the above treatment plan. The patient is aware they should contact our office by phone for worsening of their current condition or the appearance of new urologic symptoms. Compliance is encouraged with any medications and followup testing that is ordered. It is a privilege to participate in the urologic care of your patient. If you have any questions or concerns regarding treatment for the above conditions, or other urologic issues, please do not hesitate to contact me. The office telephone contact is [phone]. Sincerely, Dr Niranjan Steel MD, [facility] - Urology Compassionate Specialist Care for the Genitourinary System Coding Level of Care Code Est Pt Level 3 (49805) Complex EM visit Add On G2211 Diagnoses Testicular pain, right N50.811
--- OUTSIDE RECORDS SUMMARY | 2025-01-15 14:25 | XMS_ITS | Clinical Summary ---
Author Organization [employer] Address [address] [facility] 7t [place] [address] Care Team Providers Care Collision Estimator Name Role Phone Krista Mary SKAGGS Primary Care Provider [phone] Ata Gutierrez Unavailable Unavail able Jesi Wallace Unavailable Unavailable Karli Montejo PharmD Unavailable [phone] Allergies No known active allergies Medications * This document contains information received from the source organization and may not represent a complete record from that organization. aspirin 81 MG EC tabletIndications: Type 2 diabetes mellitus with hyperlipidemia (CMS/HCC) ([facility]) Take 1 tablet (81 mg) by mouth Once per day. 90 tablet 3 06/26/19 25 Active FreeStyle lancetsIndications :Type 2 diabetes mellitus with hyperlipidemia (CMS/HCC) ([facility]) 1 each by Other route 3 times daily. Use bid, dx type 2 diabetes 100 each 11 06/26/19 25 Active escitalopram (Lexapro) 10 MG tabletIndications: Depression with anxiety Take 1 tablet (10 mg) by mouth Once per day. 90 tablet 3 06/26/19 25 Active Blood Glucose Monitoring Suppl (ONE TOUCH ULTRA 2) w/Device kitIndications:Typ e 2 diabetes mellitus with hyperlipidemia (CMS/HCC) ([facility]) Use as directed to check blood sugar 3 times daily 1 kit 10/15/19 25 Active glucose blood ([employer] GroupTouch Ultra) test stripIndications:T ype 2 diabetes mellitus with hyperlipidemia (CMS/HCC) ([facility]) Use to test blood sugar 3 times daily 100 each 11 10/15/19 25 026 Active Lancets (OneTouch Delica Plus Kshcna54P) miscIndications:Ty pe 2 diabetes mellitus with hyperlipidemia (CMS/HCC) ([facility]) Test blood sugar 3 times daily 100 each 10/15/19 25 Active metFORMIN (Glucophage) 500 MG tabletIndications: Type 2 diabetes mellitus with hyperlipidemia (CMS/HCC) ([facility]) TAKE 2 TABLETS BY MOUTH TWICE DAILY WITH FOOD 360 tablet 10/20/19 25 Active Alcohol Swabs (Alcohol Pads) 70 % padsIndications:Ty pe 2 diabetes mellitus with hyperlipidemia (CMS/HCC) ([facility]) Use up to 4 times daily 100 each 10/20/19 25 Active pen needle 32G x 4 mm miscIndications:Ty pe 2 diabetes mellitus with hyperlipidemia (CMS/HCC) ([facility]) Use as instructed with insulin administration once daily 100 each 10/20/19 25 026 Active glucose (Glutose) 40 % gel oral gelIndications:Typ e 2 diabetes mellitus with hyperlipidemia (CMS/HCC) ([facility]) Take 15 g by mouth if needed for low blood sugar. 45 g 11 10/21/19 25 Active Lantus SoloStar 100 UNIT/ML pen INJECT 10 UNITS SUBCUTANEOUSLY DAILY 10/20/19 25 Active atorvastatin (Lipitor) 20 MG tabletIndications: Type 2 diabetes mellitus with hyperlipidemia (CMS/HCC) ([facility]) Take 1 tablet (20 mg) by mouth [...] music, prayer). PLAN: 1. Follow up with [facility]: Not recommended for follow-up 2. Patient goal is to engage in OP therapy to decrease depressive symptoms and increase coping mechanisms 3. Behavioral Recommendations a. Guided deep breathing via the PTSD cricket coach urszula b. Yoga c. Continue art, music and prayer Hypertension associated with diabetes 07/05/2022 Benign essential hypertension 08/12/2019 Encounters Date Type Department Care Team Description 01/11/2025 Orders Only [facility] [facility] [place] [address] Mary Velasco ANP 01/06/2025 Telephone [facility] [place] [address] Mary Velasco ANP 01/01/2025 Telephone [facility] [address] [place] [address] Mary Velasco ANP 01/01/[address] [address] Mary Velasco ANP Appointment Request 12/24/2024 Telephone [facility] [address] [place] [place] [address] Mary Velasco ANP Appointment Request 11/20/[address] [address] Mary Velasco ANP Cancelling appt 11/16/2024 Travel 11/02/[address] [address] Mary Velasco ANP January10/26/2024 Orders Only [facility] [place] [address] Mary Velasco ANP 10/19/2024 Travel from Last 3 Months Immunizations Immunization [...] 9:00 AM EST Office Visit [facility] OPTOMETRY [address] [place] [address] Eddie, Camryn, OD [address] [place] [address] Health Maintenance Due Date Last Done Comments [...] Specific Antigen 0.22 <0.05 - 4.0 ng/mL [facility] Comment:PSA methodology: Domenico Irizarry i ChemiluminescentMicroparticle Immunoassay (CMIA) 01/11/2025 10:4 0 AM EDT 01/11/2025 11:17 AM EDT us Generic External Data Provider LAB BLOOD ORDERAB LES Final Result Performing Organization Address [facility] [[email or web address]] Co de Phone Number [facility] [address] [place] [address] [phone] * (ABNORMAL) Hepatic Function Panel (01/11/2025 10:40 AM EDT) Only the most recent of2 resultswithin the time period is included. Bilirubin, Total 1.2(H) 0.0 - 1.0 mg/dL [facility] Bilirubin, Direct 0.2 0.0 - 0.5 mg/dL [facility] Aspartate Amino Transferase 41(H) 5 - 37 U/L [facility] Comment:Slight Hemolysis.Int erpret result with caution. Alanine Aminotransferase 42(H) 0 - 40 U/L [facility] Total Protein 7.4 6.5 - 8.0 g/dL [facility] Albumin Level 4.5 3.5 - 5.0 g/dL [facility] Alkaline Phosphatase 114 39 - 117 U/L [facility] 01/11/2025 10:4 0 AM EDT 01/11/2025 11:17 AM EDT [facility] LAB BLOOD ORDERABLES Final Resul t Performing Organization Address [facility] [[email or web address]] Co de Phone Number [facility] [address] [place] [phone] * (ABNORMAL) Lipid Panel, Standard (01/11/2025 10:40 AM EDT) Only the most recent of2 resultswithin the time period is included. Triglycerides 317(H) <150 mg/dL [facility] Comment:Desirable Triglyceri de: less than 150 mg/dLBorderline High Triglyceride 150-199 mg/dLHigh Triglyceride: 200-499 mg/dLVery High Triglyceride: greater than or equal to 5OO mg/dL Cholesterol 191 <200 mg/dL [facility] Comment:Desirable Cholestero l: less than 200 mg/dLBorderline High Cholesterol: 200-239 mg/dLHigh Cholesterol: greater than 239 mg/dL LDL Cholesterol Calculated 92 <100 mg/dL [facility] Comment:Desirable LDL: less than 100 mg/dLNear Optimal/Above Optimal LDL: 110- 129 mg/dLBorderline High LDL: 130-159 mg/dLHigh LDL: 160-189 mg/dLVery High LDL: greater than or equal to 190 mg/dL HDL Cholesterol 36(L) >40 mg/dL [facility] Comment:Desirable HDL: great er than 40 mg/dL Note: This HDL assay may give artificially low results in patients with liver disease. 01/11/2025 10:4 0 AM EDT 01/11/2025 11:17 AM EDT Mary Velasco ANP LAB BLOOD ORDERABLES Final Resul t Performing Organization Address [facility] [[email or web address]] Co de Phone Number [facility] [address] [place] [phone] * (ABNORMAL) Hemoglobin A1c (10/26/2024 9:57 AM EDT) Hemoglobin A1c 9.4(H) <6.0 % [facility] Comment:Hemoglobin A1C Refer ence Range Adults: 4.8 - 6.0 % Non diabetic: < 6.0 % Goal: < 7.0 %Additional Action Suggested: > 8.0 %Note: Hemoglobin A1c results are invalid for patients with abnormal amounts of HbF. Blood transfusions may impact the HbA1c concentration in the patient sample. Estimated Average Glucose 223 mg/dL [facility] Comment:eAG = Estimated ave rage glucose which is %A1C expressed asaverage glucose, using the formula of the L7V-LmnpklvVgetsxa Glucose study (ADAG), Diabetes Care, Vol.31,#8,Nov. 2007 10/26/2024 9:57 AM EDT 10/26/2024 11:17 AM EDT Mary Velasco ANP LAB BLOOD ORDERABLES Final Resul t Performing Organization Address [facility]/ZIP Co de Phone Number [facility] [address] [place] [phone] * Vitamin B12 (10/26/2024 9:57 AM EDT) Vitamin B12 337 200 - 900 pg/mL [facility] Comment:NORMAL 200-900 PG/ML INDETERMINATE 160-199 PG/ML DEFICIENT < 160 PG/ML 10/26/2024 9:57 AM EDT 10/26/2024 11:25 AM EDT Mary Velasco ANP LAB BLOOD ORDERABLES Final Resul t Performing Organization Address [facility] [[email or web address]] Co de Phone Number [facility] [address] [place] [phone] * (ABNORMAL) Basic Metabolic Panel (10/26/2024 9:57 AM EDT) Sodium 140 135 - 145 mmol/L [facility] Potassium 4.1 3.3 - 5.1 mmol/L [facility] Chloride 107 96 - 108 mmol/L [facility] Carbon Dioxide 25 22 - 29 mmol/L [facility] Anion Gap 12 12 - 20 [facility] Urea Nitrogen (BUN) 12 9 - 16 mg/dL [facility] Creatinine, Serum 0.82 0.5 - 1.4 mg/dL [facility] Estimated Glomerular Filt Rate >60 [facility] Comment:Chronic Kidney Disea se: Estimated GFR < 60 mL/min/1.04e8Enweap Kidney Disease: Estimated GFR < 15 mL/min/1.73m2 Glucose 153(H) 60 - 115 mg/dL [facility] Calcium 9.0 8.4 - 10.2 mg/dL [facility] 10/26/2024 9:57 AM EDT 10/26/2024 11:25 AM EDT Mary Velasco ANP LAB BLOOD ORDERABLES Final Resul t Performing Organization Address [facility] [[email or web address]] Co de Phone Number [facility] [address] [place] [address] [phone] * Albumin, Random Urine W/Creatinine (03/31/2024 11:52 AM EST) Creatinine, Urine 213.34 mg/dL [facility] Microalbumin Urine 15.0 mg/L [facility] Microalbum Creatinine Ratio Ur 7.0 <30 ug/mg cr [facility] Comment:Albumin/Creatinine R atio Reference Ranges: Normal: < 30 ug/mg creatinine Microalbuminuria: 30 - 300 ug/mg creatinineClinical Albuminuria: > 300 ug/mg creatinine 03/31/2024 11:5 2 AM EST 03/31/2024 1:10 PM EST us Mary Velasco ANP LAB URINE ORDERABLES Final Resul t [facility] [address] [place] [phone] * Hm Colonoscopy (10/31/2022) Colonoscopy Normal Normal Alexis Ortiz MD HEALTH MAINTENANCE Final Res ult * HEPATITIS C ANTIBODY RFLX (07/21/2019 9:34 AM EDT) HEPATITIS C ANTIBODY [facility] Comment: Antibodies to HCV not detected; does not exclude early acute HCV infection. 07/21/2019 9:34 AM EDT us Mary Velasco ANP HISTORICAL/NON ORDERABLE LABS Fi nal Result [facility] [address] from Last 3 Months or Most Recently Relevant to Health Maintenance Insurance [employer] MEDICARE REPLACEMENT Care Teams Collision Estimator Relationship Specialty Start Date End Date Mary Velasco ANP [address] [place] [address] PCP - General Family Medicine 07/10/19 Ata Gutierrez Community Health Worker 04/01/23 Jesi Wallace Health Navigator 11/21/23 Karli Montejo PharmD [address] [place] [address] Pharmacist Internal Medicine 10/12/24
--- OUTSIDE RECORDS SUMMARY | 2025-01-15 14:25 | XMS_ITS | Patient Health Record ---
Author Organization [facility] Address [address] [place] [phone] Care Team Providers Care Appraiser Art Name Role Phone DONNELL OKEEFE N.P. Primary Care Provider Alexis Bird Jr [phone] Allergies No Known Allergies Reason For Referral [...] nts Influenza Unknown 01/26/2022 Administered given by [facility] in fall Social History Tobacco Use: [...] Problem Status W/U Status Risk Notes Problem [id number] Colon cancer screening (Z12.11) Active confirmed Problem [id number] Abdominal cramping (R10.9) Active confirmed Plan Of Treatment Future Test Test Name Order Date COLONOSCOPY 10/01/2022 Insurance Providers Payer Name Payer Address Payer Phone Subscriber Number Group Number Insured Name Patient Relationship to Insured Coverage Start Date Coverage End Date MEDICAID OF [facility] [address] [place] [address] [id number] ESTUARDO MILLER Self - patient is the insured Medical (General) History Medical History History ICD Code Diabetes mellitus type 2 Hypertension Hyperlipidemia Surgical History Surgery Date(Month/Year) Hydrocele and testicular cyst repair 202 1
--- OUTSIDE RECORDS SUMMARY | 2025-01-15 14:25 | XMS_ITS | Encounter Summary ---
Author Organization [employer] [facility] Address [address] [place] [address] [address] [place] [address] Care Team Providers Care Microfilm Duplicating Unit Supervisor Name Role Phone Mary Velasco Primary Care Provider [phone] Ata Gutierrez Unavailable Unavail able Jesi Wallace Unavailable Unavailable Karli Montejo PharmD Unavailable [phone] Encounter Details Date Type Department Care Team (Latest Contact Info) Description 09/20/2020 Abstract [facility] CONVERSIONS Dental, Provider, DDS Social History Tobacco [...] Description 02/22/2025 9:00 AM EST Office Visit [facility] OPTOMETRY [address] [place] [address] Eddie, Camryn, OD [address] [place] [address] documented as of this encounter Visit Diagnoses Not on filedocumented in this encounter Care Teams Microfilm Duplicating Unit Supervisor Relationship Specialty Start Date End Date Mary Velasco ANP [address] [place] [address] PCP - General Family Medicine 07/10/19 Ata Gutierrez Community Health Worker 04/01/23 Jesi Wallace Health Navigator 11/21/23 Karli Montejo, PharmD [address] [place] [phone] Pharmacist Internal Medicine 10/12/24 documented as of this encounter
--- OUTSIDE RECORDS SUMMARY | 2025-01-15 14:25 | XMS_ITS | Encounter Summary ---
Author Organization [employer] Address [address] [place] [address] [address] [place] [address] Care Team Providers Care Machine Tool Mechanic Name Role Phone Mary Velasco Primary Care Provider [phone] Ata Gutierrez Unavailable Unavail able Jesi Wallace Unavailable Unavailable Karli Montejo PharmD Unavailable [phone] Encounter Details Date Type Department Care Team (Late st Contact Info) Description 01/11/2025 Orders Only [facility] [address] [place], [place] [phone] Mary Velasco ANP [address] [place], [place] [phone] Social History Tobacco Use Types Packs/Day Years [...] Description 02/22/2025 9:00 AM EST Office Visit [facility] [address] [place] [address] Eddie, Camryn, OD [address] [place] [address] documented as of this encounter Procedures Procedure Name Priority Date/Time Associated Diagnosis Comments PSA, TOTAL Routine 01/11/2025 10:40 AM EDT HEPATIC FUNCTION PANEL Routine 01/11/2025 10:40 AM EDT LIPID PANEL, STANDARD Routine 01/11/2025 10:40 AM EDT documented in this encounter Results * PSA,Total (01/11/2025 10:40 AM EDT) Prostate Specific Antigen 0.22 <0.05 - 4.0 ng/mL [facility] Comment:PSA methodology: Domenico Irizarry i ChemiluminescentMicroparticle Immunoassay (CMIA) 01/11/2025 10:4 0 AM EDT 01/11/2025 11:17 AM EDT us Generic External Data Provider LAB BLOOD ORDERAB LES Final Result [facility] [address] [place] [phone] * (ABNORMAL) Lipid Panel, Standard (01/11/2025 10:40 AM EDT) Triglycerides 317(H) <150 mg/dL [facility] Comment:Desirable Triglyceri de: less than 150 mg/dLBorderline High Triglyceride 150-199 mg/dLHigh Triglyceride: 200-499 mg/dLVery High Triglyceride: greater than or equal to 5OO mg/dL Cholesterol 191 <200 mg/dL [facility] Comment:Desirable Cholestero l: less than 200 mg/dLBorderline High Cholesterol: 200-239 mg/dLHigh Cholesterol: greater than 239 mg/dL LDL Cholesterol Calculated 92 <100 mg/dL [facility] Comment:Desirable LDL: less than 100 mg/dLNear Optimal/Above Optimal LDL: 110- 129 mg/dLBorderline High LDL: 130-159 mg/dLHigh LDL: 160-189 mg/dLVery High LDL: greater than or equal to 190 mg/dL HDL Cholesterol 36(L) >40 mg/dL [facility] Comment:Desirable HDL: great er than 40 mg/dL Note: This HDL assay may give artificially low results in patients with liver disease. 01/11/2025 10:4 0 AM EDT 01/11/2025 11:17 AM EDT Mary Velasco ANP LAB BLOOD ORDERABLES Final Resul t Performing Organization Address [facility] de Phone Number [facility] [address] [place] [phone] * (ABNORMAL) Hepatic Function Panel (01/11/2025 10:40 AM EDT) Bilirubin, Total 1.2(H) 0.0 - 1.0 mg/dL [facility] Bilirubin, Direct 0.2 0.0 - 0.5 mg/dL [facility] Aspartate Amino Transferase 41(H) 5 - 37 U/L [facility] Comment:Slight Hemolysis.Int erpret result with caution. Alanine Aminotransferase 42(H) 0 - 40 U/L [facility] Total Protein 7.4 6.5 - 8.0 g/dL [facility] Albumin Level 4.5 3.5 - 5.0 g/dL [facility] Alkaline Phosphatase 114 39 - 117 U/L [facility] 01/11/2025 10:4 0 AM EDT 01/11/2025 11:17 AM EDT Mary Velasco ANP LAB BLOOD ORDERABLES Final Resul t Performing Organization Address [facility] de Phone Number [facility] [address] [place] [phone] documented in this encounter Visit Diagnoses Not on filedocumented in this encounter Additional Health Concerns Assessment Noted Time PHQ-9 Depression Total Score: 0 06/11/19 24 9:31 AM EST documented as of this encounter Care Teams Machine Tool Mechanic Relationship Specialty Start Date End Date Mary Velasco ANP [address] [place] [phone] PCP - General Family Medicine 07/10/19 Ata Gutierrez Community Health Worker 04/01/23 Jesi Wallace Health Navigator 11/21/23 Karli Montejo, AyleenD [address] [place] [address] Pharmacist Internal Medicine 10/12/24 documented as of this encounter
== END 2025-01-15 13:37 | disposition home or self-care (01) ==
LOC: HO.HUSH 13:04
PROVIDERS: PCP Nurse Practitioner Primary Care; Visit Provider Urology
DX: N50.811 Right testicular pain (principal)
CPT/HCPCS: 99213; G2211

== ENCOUNTER → 2025-01-15 13:03 | Outpatient (BNVA) | payer MEDICARE, SELFPAY | PROVIDERS: PCP Nurse Practitioner Primary Care; Visit Provider Urology | DX: N50.811 Right testicular pain (principal) | CPT/HCPCS: 99212 ==